=== PATIENT | female | born 1975 | race Caucasian/White ===

== ENCOUNTER 2018-12-02 10:45 | Emergency (ER) | payer BC, SELFPAY ==
[2018-12-02 10:46] VITALS: BP 167/108; PULSE 94; RESP 17; TEMP 36.6; O2SAT 978; BMI 46.5
--- NOTE | 2018-12-02 10:57 | CT_ITS ---
STUDY: CT ABDOMEN AND PELVIS WITH CONTRAST REASON FOR EXAM: Female, 43 years old. Right lower quadrant pain. Possible appendicitis. RADIATION DOSAGE (If Supplied By Facility): CTDIvol = ( 31.35 ) mGy, DLP = ( 1821.05 ) mGycm TECHNIQUE: Transaxial images were obtained from the dome of the diaphragm to the symphysis pubis without oral contrast. 100Ml IV Isovue 300 was administered. Sagittal and coronal images were reconstructed. Individualized dose optimization techniques were used for this CT. COMPARISON: None. FINDINGS: The visualized lung bases are unremarkable. The visualized portions of the heart are within normal limits. Normal liver. Normal gallbladder and extrahepatic biliary system. Normal spleen. Normal pancreas. Normal bilateral adrenal glands. Normal right kidney. Normal left kidney. There is a small hiatal hernia. Normal small intestine. There are scattered colonic diverticula consistent with diverticulosis. The appendix is visualized and appears normal. Normal abdominal aorta. Normal inferior vena cava. Normal retroperitoneum. Normal urinary bladder. The right ovary measures 3.9 cm x 3.7 cm. An ovarian cyst or small follicles are suspected within it. There is an umbilical hernia containing fat. The neck of the hernia measures 2.7 cm. Normal osseous structures. CT/Abdomen/Pelvis W IV Cont ONLY IMPRESSION: Umbilical hernia. Scattered sigmoid diverticulosis. Follicles or small cysts in the right ovary. Electronically Signed: Chan Garcia, at 12:48 EDT , Service support ,
[2018-12-02 11:06] LABS: Bacteria 0 SEEN /hpf (None Seen); Mucous, Urine 0 SEEN /hpf (<or=2+); Squamous Epithelial Cells - UA 0 SEEN /hpf (5-10); White Blood Cells 0 SEEN /hpf (0-5)
[2018-12-02 11:15] LABS: Color, Urine Straw (Yellow); Glucose, Dipstick Normal (Normal); Ketone-Dipstick Negative (Negative); Leukocyte Esterase-Dipstick Negative /ul (Negative); Nitrite-Dipstick Negative (Negative); Occult Blood-Urine 25 /ul (Negative); Protein-Dipstick Negative (Negative); Urine Bilirubin Dipstick Negative (Negative); Urine Clarity Clear (Clear); Urine Urobilinogen Normal (Normal)
[2018-12-02 11:25] LABS: Red Blood Cells-Urine 0-5 SEEN /hpf (0-5)
[2018-12-02 11:29] LABS: Absolute Lymphocyte Count 1.28 X10^3/ul (0.83-4.51); Absolute Neutrophil Count 3.5 X10^3/uL (2.0-7.7); Basophil# 0.02 X10^3/uL; Basophil% 0.4 % (0-1); Eosinophil# 0.09 X10^3/uL; Eosinophils% 1.7 % (0-5); Hematocrit 33.9 % (37-47); Hemoglobin 10.6 g/dl (12.0-15.0); Lymphocyte # 1.28 X10^3/ul (4.0); Lymphocyte % 24.2 % (19-41); Mean Corp Hgb Conc 31.3 g/gl (32-36); Mean Corpuscular Volume 76.9 fL (81-99); Mean Platelet Vol. 9.4 fl (6.2-12.0); Monocyte% 7.6 % (0-10); Neutrophil # 3.49 X10^3/uL (2.7-7.7); Neutrophil % 66.1 % (47-70); Platelet Count 338 K/mm3 (150-450); RBC Distribution Width CV 14.9 % (11.6-14.6); Red Blood Count 4.41 M/mm3 (4.2-5.4); White Blood Count 5.3 K/mm3 (4.4-11.0)
[2018-12-02 11:32] LABS: POSITIVE COUNT NO; POSITIVE DIFFERENTIAL NO; POSITIVE MORPHOLOGY NO
[2018-12-02 11:34] LABS: Anion Gap 2 (5-15); BUN 10 mg/dL (7-18); BUN/Creat Ratio 14.1 RATIO (10-20); Calcium,Total 8.6 mg/dL (8.5-10.1); Chloride 106 mmol/L (98-107); Creatinine, Serum 0.71 mg/dL (0.55-1.02); EST Glomerular Filtration Rate 95 mL/min (>60); Est Glom Filt Rate - Afr Amer 114 mL/min (>60); Estimated Creatinine Clearance 94.66 ml/min; Glucose 79 mg/dL (74-106); Potassium 4.2 mmol/L (3.5-5.1); Sodium Level 139 mmol/L (136-145)
[2018-12-02 12:36] VITALS: PULSE 84; RESP 19; O2SAT 98
--- NOTE | 2018-12-02 13:53 | ED.VIS.GEN ---
History of Present Illness Chief Complaint: Abd Pain Informant: Patient Onset: Today Context: Sudden Onset - At 0400 Timing: Continuous Quality: Discomfort Location: right lower quadrant right inguinal region Current Severity: Mild Maximum Severity: Moderate Worsened by: Movement Relieved by: Nothing Associated Symptoms: Nausea Narrative: Patient is a 43-year-old sexually active woman who presents with right lower quadrant abdominal pain. She states her had a vasectomy. She denies symptoms of . She reports right lower quadrant abdominal pain. She denies flank or back pain. She denies dysuria, frequency, urgency or hematuria. She denies history of renal ureterolithiasis. She reports nausea and decrease in appetite. She denies loss of appetite. She has no known history of hernia to her knowledge. Last menses was normal. Last menses was approximately 3 weeks ago. She does have history of ovarian cyst. She denies diarrhea, mucus in her stool or blood in her stool. There is no family history of inflammatory bowel disorder. Prior similar symptoms: No Recent Illness/Hospitalization: No - Past Medical History (1) No significant past medical history Status: Acute Past Medical History - Allergies and Home Meds Allergies/Adverse Reactions: Allergies No Known Allergies Allergy (Verified 12/02/18 10:49) Primary Care Physician: Lloyd Gordon MD [Primary Care Provider] - Prior records reviewed: Yes Surgical History: no surgical history Lives: Spouse/ Significant Other, With Family Smoking Status: Former smoker Drugs: None Review of Systems General: Denies: Chills, Fever, Malaise, Subjective, Sweats, Weight loss Eyes: Denies: Visual changes - bilaterally, Blurred Vision - bilaterally ENT: Denies: Rhinorrhea, Sore throat Cardiovascular: Denies: Chest pain Respiratory: Denies: Dyspnea, Cough, Sputum, Dyspnea on exertion Gastrointestinal: Reports: Abdominal pain, Nausea. Denies: Vomiting, Diarrhea, Constipation, Melena, Hematochezia, -, - Genitourinary: Denies: Dysuria, Hematuria, Frequency Musculoskeletal: Denies: Myalgias, Arthralgias, Neck pain, Back pain, Extremity Pain Skin: Denies: Rash, Wounds Neurological: Denies: Headache, Weakness, Numbness Hematologic: Denies: Easy bruising, Easy bleeding Allergy: Denies: Uticaria, Swelling of the mouth Physical Exam Vital Signs/Narrative: Vital Signs Temp Pulse Resp BP Pulse Ox 12/02/18 12:36 84 19 H 98 12/02/18 10:46 97.8 F 94 17 167/108 H 978 Inital Vital Signs reviewed: Yes General: Well nourished, Well developed, Obese, No Acute Distress Head: Normocephalic, Atraumatic Eyes: Perrl, EOMI. Negative for: Pale conjunctiva, Scleral icterus ENT: Moist mucous membranes, No rhinorrhea, TM's clear Neck: Supple, Nontender, No lymphadenopathy, No JVD Cardiovascular: Regular rate, Regular rhythm, No murmurs, Normal S1, Normal S2 Abdomen: Soft, Nondistended, Normal bowel sounds, No masses, Tender, Umbilical hernia, Hernia reducible. Negative for: Nontender, Ventral hernia, Inguinal hernia Rectal: Deferred Back: Nontender, Normal Inspection Extremities: Nontender, No edema Skin: Normal color, No rash Neurological: Alert, Oriented x3, Cranial nerves II-XII grossly intact, Normal Strength, Normal Sensation Psychological: Normal affect, Normal Mood Diagnostic/Tx/Re-eval Impressions Abdomen/Pelvis CT 12/02/18 10:57 IMPRESSION: Umbilical hernia. Scattered sigmoid diverticulosis. Follicles or small cysts in the right ovary. Electronically Signed: Chan Radha, at 12:48 EDT , Service support , 12/02/18 10:57 Abdomen/Pelvis W IV Cont ONLY [CT] Stat Laboratory Results 12/02/18 12/02/18 12/02/18 11:00 11:10 11:10 WBC 5.3 RBC 4.41 Hgb 10.6 L Hct 33.9 L MCV 76.9 L MCH 24.0 L MCHC 31.3 L RDW 14.9 H RDW Differential 42.0 Plt Count 338 MPV 9.4 Immature Gran % (Auto) 0.000 Neut % (Auto) 66.1 Lymph % (Auto) 24.2 [place] % (Auto) 7.6 Eos % (Auto) 1.7 Baso % (Auto) 0.4 Absolute Neuts (auto) 3.5 Absolute Lymphs (auto) 1.28 Total Counted Not Reportable Sodium 139 Potassium 4.2 Chloride 106 Carbon Dioxide 31.0 Anion Gap 2 L BUN 10 Creatinine 0.71 Estim Creat Clear Calc 94.66 Est GFR (MDRD) Af Amer 114 Est GFR (MDRD) Non-Af 95 BUN/Creatinine Ratio 14.1 Glucose 79 Calcium 8.6 Urine Color Straw Urine Clarity Clear Urine pH 8.0 Ur Specific [place] 1.010 Urine Protein Negative Urine Glucose (UA) Normal Urine Ketones Negative Urine Occult Blood 25 H Urine Nitrite Negative Urine Bilirubin Negative Urine Urobilinogen Normal Ur Leukocyte Esterase Negative Urine RBC 0-5 SEEN Urine WBC 0 SEEN Ur Squamous Epith Cells 0 SEEN Urine Bacteria 0 SEEN Urine Mucus 0 SEEN - Medical Decision Making With abrupt onset of right lower quadrant pain differential would include ovarian cyst, ureterolithiasis, mesenteric adenitis doubt appendicitis. With no history of diarrhea, blood or mucus in stool doubt inflammatory bowel disorder. Patient does have a reducible umbilical hernia. Unable to determine if she has an inguinal hernia secondary to body habitus. There is no CVA tenderness. There is significant tenderness in the right lower quadrant. CBC, UA and electrode panel unremarkable. CT of the abdomen reveals ovarian cysts on the right possible ruptured ovarian cyst and evidence of umbilical hernia. There is no evidence of inguinal or ventral hernia. Patient was informed of results and treatment is NSAIDs since she has no contraindication. ED Disposition - Plan for ED Patient: Disposition: Home or Assisted Living Diagnosis: Ovarian cyst rupture, Umbilical hernia Instructions: ED Cyst Ovarian, What Is a Hernia? Referrals: Lloyd Gordon MD [Primary Care Provider] - As Needed Additional Instructions: The treatment for ovarian cyst is anti-inflammatory. You may take either 4 ibuprofen every 8 hours for the next 3 days or 2 Aleve every 12 hours for the next 3 days.
== END 2018-12-02 14:06 | disposition home or self-care (01) ==
PROVIDERS: Emergency Provider Emergency Medicine; Family Provider Internal Medicine; PCP Internal Medicine
DX: N83.201 Unspecified ovarian cyst, right side (principal); K42.9 Umbilical hernia without obstruction or gangrene; K57.30 Diverticulosis of large intestine without perforation or abscess without bleeding; Z87.891 Personal history of nicotine dependence
CPT/HCPCS: 74177; 80048; 81001; 85025; 99284; Q9967; A4216

== ENCOUNTER 2019-05-23 09:49 | Emergency (ER) | payer BC, SELFPAY ==
[2019-05-23 09:50] VITALS: BP 164/111; PULSE 76; RESP 18; TEMP 36.6; O2SAT 98; BMI 46.0
[2019-05-23 09:52] VITALS: BP 164/111; PULSE 83; RESP 18; TEMP 36.6; O2SAT 99; BMI 46.0
--- NOTE | 2019-05-23 10:09 | CT_ITS ---
STUDY: CT BRAIN WITHOUT CONTRAST REASON FOR EXAM: Female, 44 years old. One week history of dizziness and weakness. RADIATION DOSAGE (If Supplied By Facility): CTDIvol = ( 44.99 ) mGy, DLP = ( 779.24 ) mGycm TECHNIQUE: Transaxial CT imaging of the brain was performed without administration of intravenous contrast material. Individualized dose optimization techniques were used for this CT. COMPARISON: No relevant priors. FINDINGS: Normal soft tissue structures. Normal calvarium. Normal size ventricles and extra-axial spaces for the patient's age. Normal white matter tracts of the cerebral hemispheres. Normal basal ganglia and thalami. Normal brainstem. Normal cerebellum. There is no intracranial hemorrhage. There are no findings of an acute ischemic infarction. Normal visualized paranasal sinuses. CT/Brain/Head without Contrast IMPRESSION: Normal unenhanced CT scan of the brain. Electronically Signed: Chan Garcia, at 10:57 EST , Service support ,
--- NOTE | 2019-05-23 10:11 | EKG12_ITS ---
Test Reason : WEAKNESS Blood Pressure : / mmHG Vent. Rate : 064 BPM Atrial Rate : 064 BPM P-R Int : 180 ms QRS Dur : 088 ms QT Int : 398 ms P-R-T Axes : 041 002 012 degrees QTc Int : 410 ms Normal sinus rhythm Normal ECG Confirmed by NEHAL BROWN, LULI ([id number]), electronic news gathering editor CESAR CONNORS ([id number]) on 05/30/2019 1:59:32 PM Referred By: JULIET Confirmed By:LULI CALVERT MD
--- NOTE | 2019-05-23 10:13 | ED.VIS.GEN ---
History of Present Illness Chief Complaint: Weakness Informant: Patient Onset: Yesterday Current Severity: Moderate Maximum Severity: Moderate Narrative: Patient presents with generalized weakness and lightheadedness. She did mention the word dizzy however she tells me that when she lays down in bed she is mostly asymptomatic but she sits up and stands up she feels in a cloud. She was at work and she felt worse. She denies any vision changes, speech difficulties, weakness or paresthesias or confusion. No recent trauma. She denies any chest pain or shortness of breath she denies abdominal pain she denies dysuria, she is about 7 days late for her menstrual cycle but she took a home test which was negative. She does complain of slight polydipsia. Past Medical History - Allergies and Home Meds Allergies/Adverse Reactions: Allergies No Known Allergies Allergy (Verified 05/23/19 09:53) Primary Care Physician: Lloyd Gordon MD [Primary Care Provider] - Past Medical History: None Surgical History: no surgical history Smoking Status: Former smoker Review of Systems All systems negative except as indicated General: Reports: - - Lightheaded as in HPI. Denies: Fever, Sweats, Weight loss Eyes: Denies: Visual changes - bilaterally Cardiovascular: Denies: Chest pain Respiratory: Denies: Dyspnea, Cough Gastrointestinal: Denies: Abdominal pain, Nausea, Vomiting Musculoskeletal: Denies: Myalgias, Neck pain, Back pain Skin: Denies: Rash Neurological: Reports: Weakness, - - She has noted intermittent headaches that have been happening for the past few weeks. These are mostly in the morning. Endocrine: Reports: Polydipsia. Denies: Polyuria Hematologic: Denies: Easy bruising Allergy: Denies: Swelling of the mouth, Swelling of the tongue Physical Exam Vital Signs/Narrative: Vital Signs Temp Pulse Resp BP Pulse Ox 05/23/19 09:52 97.8 F 83 18 164/111 H 99 05/23/19 09:50 97.8 F 76 18 164/111 H 98 General: Well nourished, Well developed, Obese ENT: - - Slightly dry mucous membranes Neck: Supple, Nontender Cardiovascular: Regular rate, Regular rhythm Respiratory: No distress, CTA bilaterally Abdomen: Soft, Nontender, Nondistended Back: Nontender, Normal Inspection Extremities: Nontender, No edema Skin: Normal color Neurological: Alert, Oriented x3, Cranial nerves II-XII grossly intact - Normal Romberg, Normal Strength, Normal Sensation, Normal Gait Diagnostic/Tx/Re-eval - Rhythm Strip Rhythm Strip: Sinus Rhythm Rate: 64 Ectopy: None - EKG Initial EKG Interpretation: Sinus Rhythm, - - Normal sinus rhythm at 64. Normal AR and QTc intervals. No ischemic changes Interpreted by emergency doctor - Medical Decision Making She has an unremarkable emergency department work-up, she received IV fluids and she improved. She likely had slight dehydration all her symptoms are very positional, she is virtually asymptomatic laying down. She has no vertigo or disequilibrium. I will discharge her in stable condition. ED Disposition - Plan for ED Patient: Disposition: Home or Assisted Living Diagnosis: Dehydration Instructions: Dehydration Referrals: Lloyd Gordon MD [Primary Care Provider] - 3-5 Days
[2019-05-23 10:26] LABS: Mucous, Urine 0 SEEN /hpf (<or=2+); Red Blood Cells-Urine 0 SEEN /hpf (0-5); White Blood Cells 0 SEEN /hpf (0-5)
[2019-05-23 10:28] LABS: Color, Urine Yellow (Yellow); Glucose, Dipstick Normal (Normal); Ketone-Dipstick Negative (Negative); Leukocyte Esterase-Dipstick Negative /ul (Negative); Nitrite-Dipstick Negative (Negative); Occult Blood-Urine 10 /ul (Negative); Protein-Dipstick Negative (Negative); Urine Bilirubin Dipstick Negative (Negative); Urine Clarity Sl. Cloudy (Clear); Urine Urobilinogen Normal (Normal)
[2019-05-23 10:30] LABS: Internal QC Validated? YES +Cl - CLEAR BKGD; Pregnancy, Urine Negative Negative
[2019-05-23] MEDS: 0.9% Normal Saline 1,000 ML 1000 ML IV (10:30)
[2019-05-23 10:33] LABS: Bacteria RARE /hpf (None Seen); Squamous Epithelial Cells - UA 0-5 SEEN /hpf (5-10)
[2019-05-23 10:36] LABS: Absolute Lymphocyte Count 1.38 X10^3/uL (0.83-4.51); Absolute Neutrophil Count 4.1 X10^3/uL (2.0-7.7); Basophil# 0.04 X10^3/uL; Basophil% 0.6 % (0-1); Eosinophil# 0.14 X10^3/uL; Eosinophils% 2.3 % (0-5); Hematocrit 35.4 % (37-47); Hemoglobin 11.1 g/dL (12.0-15.0); Lymphocyte # 1.38 X10^3/ul (4.0); Lymphocyte % 22.2 % (19-41); Mean Corp Hgb Conc 31.4 g/dL (32-36); Mean Corpuscular Hgb 25.5 pg (27.0-32.0); Mean Corpuscular Volume 81.4 fL (81-99); Mean Platelet Vol. 9.8 fl (6.2-12.0); Monocyte# 0.54 X10^3/uL; Monocyte% 8.7 % (0-10); NRBC Flagged by Analyzer 0 % (0-5); Neutrophil % 65.9 % (47-70); Platelet Count 298 K/mm3 (150-450); RBC Distribution Width CV 14.9 % (11.6-14.6); RBC Distribution Width SD 43.8 fl (35.1-43.9); Red Blood Count 4.35 M/mm3 (4.2-5.4); White Blood Count 6.2 K/mm3 (4.4-11.0)
[2019-05-23 10:50] LABS: ALB/GLOB Ratio 0.9 RATIO (0.9-2.4); AST(SGOT) 11 U/L (15-37); Alanine Aminotransfer ALT/SGPT 14 U/L (13-56); Albumin, Serum 3.4 g/dL (3.2-5.0); Alkaline Phosphatase 65 U/L (45-117); Anion Gap 4 (5-15); BUN 11 mg/dL (7-18); BUN/Creat Ratio 16.2 RATIO (10-20); Calcium,Total 8.4 mg/dL (8.5-10.1); Chloride 105 mmol/L (98-107); Creatinine, Serum 0.68 mg/dL (0.55-1.02); EST Glomerular Filtration Rate 99 mL/min (>60); Est Glom Filt Rate - Afr Amer 120 mL/min (>60); Globulin 3.6 g/dL (2.2-4.2); Glucose 82 mg/dL (74-106); Lipase 155 U/L (73-393); Potassium 3.9 mmol/L (3.5-5.1); Sodium Level 139 mmol/L (136-145)
--- NOTE | 2019-05-23 10:50 | RAD_ITS ---
STUDY: X-RAY CHEST REASON FOR EXAM: Female, 44 years old. Dizziness. TECHNIQUE: Single AP portable view of the chest. COMPARISON: None. FINDINGS: EKG electrodes are seen. The lungs are clear and expanded. There is no demonstrated pleural abnormality. Normal size heart. Normal mediastinum and ravinder. Normal visualized pulmonary arteries. Normal visualized aortic arch and descending thoracic aorta. Normal visualized thoracic spine. Normal visualized ribs, clavicles, and shoulders. There is no demonstrated abnormality of the visualized soft tissue structures of the upper abdomen. RAD/Chest 1 View (Portable) IMPRESSION: Normal x-ray examination of the chest. Electronically Signed: Chan aGrcia, at 11:13 EST , Service support ,
[2019-05-23 12:40] VITALS: BP 130/84; PULSE 65; RESP 18
== END 2019-05-23 12:41 | disposition home or self-care (01) ==
PROVIDERS: Emergency Provider Emergency Medicine; Family Provider Internal Medicine; PCP Internal Medicine
DX: E86.0 Dehydration (principal); Z87.891 Personal history of nicotine dependence
CPT/HCPCS: 70450; 71045; 80053; 81001; 81025; 83690; 85025; 93005; 96360; 96361; 99284; J7030; A4216

== ENCOUNTER 2020-01-12 05:29 | Day surgery (SDC) | payer BC, SELFPAY ==
[2020-01-02 08:18] VITALS: BMI 46.0
[2020-01-05 15:32] LABS: Hematocrit 36.8 % (37-47); Hemoglobin 11.1 g/dL (12.0-15.0); Mean Corp Hgb Conc 30.2 g/dL (32-36); Mean Corpuscular Volume 82.9 fL (81-99); Mean Platelet Vol. 9.6 fl (6.2-12.0); Platelet Count 353 K/mm3 (150-450); RBC Distribution Width CV 15.2 % (11.6-14.6); RBC Distribution Width SD 45.7 fl (35.1-43.9); Red Blood Count 4.44 M/mm3 (4.2-5.4)
[2020-01-05 15:44] LABS: International Normalized Ratio 1.1; Prothrombin Time (Protime)PT. 13.7 SECONDS (11.7-14.9)
[2020-01-05 15:52] LABS: Internal QC Validated? YES +Cl - CLEAR BKGD; Pregnancy, Serum, hCG Quali. NEGATIVE Negative
[2020-01-05 15:58] LABS: Creatinine, Serum 0.74 mg/dL (0.55-1.02); EST Glomerular Filtration Rate 90 mL/min (>60); Est Glom Filt Rate - Afr Amer 109 mL/min (>60)
[2020-01-12] VITALS (14 sets, daily range): BP systolic 113–157; BP diastolic 73–101; PULSE 62–98; RESP 16–18; TEMP 36.2–37.1; O2SAT 94–100; BMI 48.8
[2020-01-12] MEDS: Lactated Ringers 1,000 ML 100 ML IV ×2 (06:12)
--- NOTE | 2020-01-12 06:19 | PCM.HP.BLA ---
History and Physical Date of Admission: 01/12/20 Surgical History and Physical Holly Piper, a 44 year old female 1 0 0 0 1, presents for RAVH/BSO/APPY on January 12, 2020 at 7:30. -- Chronic RLQ Pain; Menorrhagia; Ovarian Cysts; Uterine Fibroids, Blood Loss Anemia -- 44 y.,o. G 1 P 1 previous smoker(quit many years ago) with regular menses and LMP of 11-20-19 lasting her average of 7 days. Reports about a year ago she started with heavy bleeding and has fibroids, history of ovarian cysts(last US at [facility] in ) and chronic pelvic pain. Spouse has had Vasectomy for control. Pt has fibroids, ovarian cysts, heavy bleeding, and pelvic pain. Holly claims it started gradually It occurs with menses. It is located in the vagina. Holly characterizes the quality annoying and no relief in sight. Severity is severe and worsening; Associated signs and symptoms are dysmenorrhea, blood loss anemia (Hgb down to 9's). Additional comments are: U/S at [facility] showed uterine fibroids and a 7.8 cm right ovary; overall size of uterus 7.9 x 6.4 x 5.4 cm.; Additional comments are: this u/s done on Aug 07. MEDICATIONS HISTORY: Patient is also takin. famotidine 20 mg tablet, One pill by mouth once a day at ALLERGIES: No Known Allergies Infections - Chicken pox Illnesses - Reflux Accidents - None Hospitalizations - see surgery Review of Systems: GENERAL - Denies fever, or chills SKIN - Denies skin changes EYES - Denies visual changes EARS - Denies difficulty hearing NOSE - Denies nasal congestion or bleeding MOUTH - Denies sore throat or difficulty swallowing NECK - Denies pain or swelling RESPIRATORY - Denies shortness of breath or wheezing CARDIOVASCULAR - Denies palpitations or chest pain GASTROINTESTINAL - Denies nausea, vomiting, diarrhea, constipation GENITOURINARY - Denies dysuria, frequency of urination, incontinence of urine MUSCULOSKELETAL - Denies joint or muscle pain NEUROLOGICAL - Denies localized numbness or weakness PSYCHIATRIC - Denies depression or anxiety ENDOCRINE - Denies heat or cold intolerance, weight loss or gain HEMATO-IMMUNOLOGIC - Denies excessive bleeding with cuts SOCIAL HISTORY: Alcohol Use - socially Smoking - used to smoke but quit Diet - LACTOSE FREE Lifestyle - moderate stress lifestyle and Exercise - minimal Seat Belt Use - always Employer - [employer]) Illicit Drug Use - None Sexual Activity - Spouse-Sig Other Name - Andrey Spouse-Sig Other 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 03/08/2001 2. T and A, 1987 PHYSICAL EXAM BP- 120/100 Sitting, Right arm, large cuff Temp- 98.1 Taken Orally Weight- 304.74202 lbs Height- 66.00 inch BMI:49.23 CONSTITUTIONAL - NAD, well nourished, and well developed and obese SKIN - No rash, lesions, or ulcers HEENT - Normocephalic, PERRLA, EOMI NECK - No nodes, no nuchal rigidity and thyroid normal size and texture LYMPH NODES - Palpation of lymph nodes in neck and groins within normal limits LUNGS - CTA x2 without wheezes, crackles or rales CARDIAC - Regular rate and rhythm without rubs, murmurs, or gallops ABDOMEN - Without hepatosplenomegaly, distention, masses, rebound, or guarding; normal bowel sounds; no hernias EXTREMITIES - No edema or calf tenderness NEUROLOGICAL - Cranial nerves II-XII grossly intact PSYCHIATRIC - A and O to time, place, person, mood and affect External Genital Vagina - non-tender without lesions Urethra/Urethral Meatus - non-tender Bladder - non-tender Vagina - vaginal melgar are pink and moist without loss of rugae and no evidence of atropy Cervix - without cervical motion tenderness and has normal size and features without evident lesions Uterus - 5-6 cm in size, mobile and nontender and exam compromised by habitus Adnexa - clear without masses or tenderness, increased tenderness right adnexa and exam limited by habitus ASSESSMENT/PLAN: 1. Anemia In Other Chronic Diseases Classified Elsewhere, Premenopause Menorrhagia and Uterine Leiomyoma Unspec Uncertain etiology but denies any intermenstrual bleeding. Discussed medical options including OCPs, IUD which pt refuses. Also discussed minor surgical options including D and C with/without ablation and pt declines in favor of hysterecomy due to longsstanding problems of fibroids and less likely that ablation and D and C will help with her bleeding problems and anemia. 2. Ovarian Cyst Ot/unspec and Right Lower Quadrant Pain Uncertain etiology but cyclic nature and cysts on ovaries makes endometriosis likely. Again discussed options for treatment including GnRH agonist, Dx L/S, or proceeding with Hyst with BSO/appy and patient desires the latter. Given longstanding nature and severity and cyclic nature of the pain we will proceed. Plan RAVH/BSO/APPY. Discussed RBAs including possibility of not helping with the pain and needing to be on HRT for an indefinite period of time and all questions answered. Procedure Criteria Procedure Type: Elective COVID Risk Discussion: The surgeon/proceduralist and patient have discussed in detail the risk of exposure to and/or potential harm posed by the COVID-19 virus with having a surgery/procedure at this time versus the risk of delaying the surgery/procedure. It is not possible to know either the risk of delaying the surgery or procedure or chance of getting an infection with perfect accuracy, but a joint decision was made between the patient and the surgeon/proceduralist to proceed at this time with the scheduled surgery/procedure as indicated on the consent form.
--- NOTE | 2020-01-12 07:29 | PCM.OPRPT ---
Report of Operation Date of Procedure: 01/12/20 Pre-Operative Diagnosis: Chronic RLQ Pain; Menorrhagia; Ovarian Cysts; Uterine Fibroids, Blood Loss Anemia Post-Operative Diagnosis: Chronic RLQ Pain; Menorrhagia; Ovarian Cysts; Uterine Fibroids, Blood Loss Anemia Surgery/Procedure Performed:: Robotic Assisted Vaginal Hysterectomy, Bilateral Salpingo-Oophorectomy, Appendectomy, Lysis of Adhesions Description of Surgical Findings:: 10 cm uterus with normal-appearing fallopian tubes and ovaries. Dense adhesions of the omentum to the anterior abdominal wall into the umbilicus. Normal-appearing left fallopian tube and ovary. Right ovary with approximately 4 to 5 cm endometrioma with dense adhesions of the ovary and tube to the right pelvic sidewall. Appendix appeared essentially normal. cruise director: Chemo Stephens Type of Anesthesia:: General - Endotracheal Anesthesiologist: Jesse Mayfield Specimen's removed: Uterus, bilateral fallopian tubes and ovaries, appendix Drains: Chou to straight drain Estimated Blood Loss (mL): 100 cc Fluids Replaced: Crystalloid Description of Procedure: Surgeon: Shin Groves MD, FACOG Co-surgeon: Grabiel Nuno MD (appendectomy--separate report) Indication: This is a 44 year old patient who has been having problems with pelvic pain, endometriosis, menorrhagia, and intermittent severe blood loss. Conservative measures have not been helpful. The patient has been counseled regarding the risks, benefits and alternatives of this procedure including the possibility of bleeding, infection, and injury to surrounding structures such as bowel bladder and all questions were answered. She understands that if BSO is needed that she will need to be on HRT for an indefinite period of time. Procedure: Pt taken to the operating room where, after induction of general anesthesia, the patient was prepped and draped in the usual sterile fashion and placed on a non-slip Huggy-u-vac device. Trendelenburg test was satisfactory. Bladder was drained of urine with a Chou catheter which was left in place. Anterior cervix grasped and cervix was dilated to about 3-4 mm. Uterus sounded to 8 cms. 0-Vicryl suture was placed at the 3:00 and 9:00 position of the cervix. A small Advincula Steam Fitter Supervisor Maintenance Uterine Manipulator was then placed in the uterus and attention was turned to the laparoscopic portion of the procedure. Ropivocaine 0.5% was injected approximately 2-3 cm superior to the umbilicus and an 8 and then 12 mm mm robotic camera port was introduced directly with intraperitoneal placement confirmed with CO2 insufflation. 8 mm robotic side ports were introduced under direct visualization approximately 11 cm lateral and 2 cm inferior to the umbilical port. A 5 mm left upper quadrant port was introduced and airseal insufflation with CO2 was started. The above findings were noted. Robot was docked without difficulty and attention turned to the robotic portion of the procedure. Approximately 30 cc of Ropivicaine was used. Bilateral infundibulopelvic ligaments/mesosalpinx were ligated with 35 wu bipolar coagulation to the level of the round ligament. Adhesions on the right were taken down with cautery and sharp dissection. The posterior aspect of the cervix was identified and then opened for about 1 cm using 25 watt monopolar cautery identifying the uterine manipulating device which had been placed vaginally. Bladder flap was opened and divided to the level of the round ligaments using monopolar cautery. Progressive bites were then ligated on each side of the cervix with 35 wu bipolar cautery to the uterine arteries. The anterior vaginal mucosa was entered and cervix circumscribed with monopolar cautery. Uterus and attached tubes and ovaries were removed through the vagina. Vaginal cuff was closed first with 0-Vicryl Michael stitches placed at each angle followed by closure of the mid-cuff with 0-Monocryl V-lock suture in two layers. Pelvis was copiously irrigated with saline and the right ureter was noted to peristalse. Robot was undocked and trocars were removed with as much gas as possible. Incisions were closed with 4-0 Monocryl subcuticular sutures and incisions covered with steri-strips. The patient tolerated the procedure well and was taken to the recovery room in satisfactory condition. Sponge, instruments and needle counts were all correct. There were no apparent complications of the surgery. Cefotan 2 gms IV was given prior to the procedure. Estimated Blood Loss: 100 cc Specimen to Pathology: Uterus and bilateral fallopian tubes and appendix Grafts/Implants Used: None - Complications None - Admit VTE Documentation VTE Present on Admission: Yes VTE Mechan Device Prophylaxis: SCD's VTE Pharm Prophylaxis ordered?: Yes
--- NOTE | 2020-01-12 07:30 | HYST_PTH ---
PATIENT: JOHANNA CAGE LOC: [facility] [place] U#:[id number] AGE/SX: 44/F ROOM: RE01/12/[address]: Dr. Shin Groves MD : 1975 BED: DIS: 01/13/2020 SPEC #: [id number] RECD: 01/12/20 07:30 STATUS: BEENA ADAMS #: [id number] SCOTT: 01/12/20 07:[address]: Shin Groves DEPT: SURGICAL PATHOLOGY RECD BY: Kyrie Tobias ENTERED: 01/15/20 08:24 SP TYPE: HYSTERECT OTHR DR: MD Dr. Lloyd Dumont MD Tissues: A - Uterus, NOS B - APPENDIX (INCIDENTAL) Procedures: Surgery Specimen Level II Surgery Specimen Level V HEADER OPERATION: Lap robotic hysterectomy, BSO PRE-OP DIAGNOSIS: Chronic RLQ pain; menorrhagia; ovarian cysts; uterine fibroids TISSUE SUBMITTED: A - Uterus, bilateral fallopian tubes and ovaries, B - Appendix MICROSCOPIC DIAGNOSIS A. Uterus, hysterectomy: Cervix - nabothian cysts and chronic inflammation. Endometrium - weakly proliferative to inactive endometrium. Myometrium - leiomyoma. Right ovary and fallopian tube - hemorrhagic corpus luteal cyst, tubo-ovarian adhesions and endometriosis. Left fallopian tube - benign paratubal cyst. Left ovary - hemorrhagic corpus luteal cysts and corpora albicantia. B. Appendix, appendectomy: No significant pathologic change. No evidence of inflammation. CAROL:kingsley 01/16/20 COMMENT Case has been reviewed in consultation with Dr. Santana who concurs with the above diagnosis. IDC:CAROL MICROSCOPIC DESCRIPTION Slides are reviewed. GROSS DESCRIPTION A - Received in fixative is one container labeled with the patient's name and designated uterus, bilateral fallopian tubes and ovaries. The specimen consists of a hysterectomy specimen consisting of uterus with cervix and attached bilateral fallopian tubes and ovaries. The uterus with cervix weighs 98 gm and measures 9.5 x 6 x 5 cm. The serosal surface is george, glistening and a small subserosal nodule is noted. The ectocervical mucosa is unremarkable. The external os is circular in contour. The endocervical canal measures 3.5 cm in length and the endocervical mucosa is george, glistening and unremarkable. The triangular endometrial cavity measures 4.5 cm in length and 3 cm in width. The endometrium is george, glistening without any mass lesion and measures 0.1 cm in thickness. Sections of the uterine wall reveal a small subserosal nodule measuring 0.5 cm in diameter. The uterine wall measures up to 2.5 cm in thickness. The right fallopian tube is adherent over the right ovary. The right fallopian tube measures 8 cm in length and 1 cm in diameter. The right ovary measures 4.5 x 4 x 3 cm. The ovary is partly disrupted. Sections reveal a collapsed hemorrhagic cyst. Almost the entire ovary is replaced by a hemorrhagic cyst. The left fallopian tube measures 6 cm in length and 0.5 cm in diameter. The fimbrial end is identified. The fimbrial end is focally adherent to the left ovary. Sections do not reveal any mass lesion. The left ovary measures 2.5 x 2 x 1 cm. Sections reveal a hemorrhagic fibrous lymph node. Also present in the container is a detached piece of hemorrhagic tissue measuring 2 x 2 x 0.5 cm. Personnel Recruiter sections are submitted in 12 cassettes as follows: 1 - anterior cervix, 2 - posterior cervix, 3 & 4 - anterior uterine wall, 5 & 6 - posterior uterine wall, 7 - subserosal nodular mass and right fallopian tube, 8-10 - right ovary including adherent right fallopian tube, 11 - left fallopian tube and detached piece of tissue, 12 - left ovary. B - Received is one container labeled with the patient's name and designated appendix. The specimen consists of a J-shaped appendix measuring 5 cm in length and 0.6 cm in diameter. The attached periappendiceal adipose tissue measures up to 3 cm in width. No obvious perforation is identified. The lumen contains a small amount of fecal material. No fecalith is identified. The entire specimen is submitted in two cassettes. Cassette 1 contains the tip of the appendix. / SJ:kingsley 01/15/20 TC:5 CPT: 77820, 96117
--- NOTE | 2020-01-12 07:32 | DCINST_ITS ---
Discharge Diet: No Restrictions Discharge Activity: Return to Normal Activity, May Not Drive - while taking narcotic pain medications., May Shower, May Take a Tub Bath May resume sexual activity in: 6-8 weeks Call your doctor if your incision/area has: Continuous Slow Oozing, Sudden Inc reased Bleeding, Increased Pain/ Swelling, Increased Redness, Foul Smelling Discharge Call your doctor if you observe: Fever of 101 or Higher, Inability to urinate, Inability to have a bowel movement, Using more than one pad per hour Allergies/Adverse Reactions: Allergies No Known Allergies Allergy (Verified 01/12/20 05:41) Medications to take at Discharge acetaminophen 325 mg capsule 500 mg PO QAM cap 01/02/20 famotidine 20 mg tablet 20 mg PO QHS 01/02/20 ibuprofen 200 mg capsule 200 mg PO QAM cap 01/02/20 Docusate Sodium [Colace] 100 mg PO BID PRN PRN #60 cap 01/12/20 Estradiol 1 mg PO DAILY #100 tab 01/12/20 Oxycodone [Oxyir] 5 mg PO Q6H PRN PRN 7 Days #20 tablet 01/12/20 The following prescriptions were given: Docusate Sodium [Colace] 100 mg PO BID PRN PRN #60 cap PRN Reason: Constipation Transmission Status: Pending to [facility] #30 Estradiol 1 mg PO DAILY #100 tab Transmission Status: Pending to [facility] #30 Oxycodone [Oxyir] 5 mg PO Q6H PRN PRN 7 Days #20 tablet PRN Reason: Pain Score 6-10/10 Transmission Status: Sent to [facility] #[facility] Primary Care Physician: Lloyd Gordon MD [Primary Care Provider] - Test Results: Test results from this visit will be discussed in further detail at your follow- up appointment, if applicable. Please Follow Up With: Shin Groves MD When: 2 to 3 weeks
[2020-01-12] MEDS: Ropivacaine 0.5% 30 ML Vial (08:30)
--- NOTE | 2020-01-12 11:57 | OP.PCM_ITS ---
Problem List (1) Right lower quadrant abdominal pain Status: Acute (2) Endometriosis Status: Acute Report of Operation Date of Procedure: 01/12/20 Pre-Operative Diagnosis: 1. Right lower quadrant abdominal pain. 2. Endome triosis Post-Operative Diagnosis: Same Surgery/Procedure Performed:: Laparoscopic appendectomy Type of Anesthesia:: General Anesthesiologist: Filipe Mayorga Specimen's removed: Appendix Estimated Blood Loss (mL): < 25 cc Description of Procedure: Dr. Groves had completed his robotically assisted total abdominal hysterectomy. I found the patient to be in the headdown position her vital signs were stable. And a quick report revealed that there was no overt amount of bleeding from Dr. Groves's procedure. Patient had 4 trochars located in the abdomen. We had the patient headdown and rotated to the left. I grabbed the appendix and came down on the mesoappendix with the Enseal device I had excellent hemostasis I was able to then transect the base the appendix with a 45 linear cutter. The base the appendix was then touch prepped with electrocautery excellent hemostasis was achieved. Specimen was placed in a bag and brought back through the umbilical port without difficulty. Irrigated the right lower quadrant good in the stasis was noted. Trochars were subsequently removed the abdomen was deflated. Closed the 10/12 trocar with 0 Vicryl. Skin incisions were then closed with subcuticular stitches of 4-0 Monocryl. Steri-Strips were applied sterile dressings were applied the patient tolerated the procedure well. The previous surgery will be dictated by Dr. Groves - Admit VTE Documentation VTE Present on Admission: No VTE Mechan Device Prophylaxis: SCD's VTE Pharm Prophylaxis ordered?: No Reason prophylaxis not ordered:: Treatment Not Indicated [id number]: [id number] Laparoscopy appendectomy
[2020-01-12] MEDS: Ketorolac 30 MG/ML Syringe IV ×3 (12:41→23:17)
[2020-01-12] MEDS: Dextrose 5%-Lactated Ringers 1,000 ML 150 ML IV ×2 (13:39→20:00)
[2020-01-12] MEDS: Estrogens,Conj. 0.625 MG Tablet PO (15:20)
[2020-01-12] MEDS: Enoxaparin 40 MG/0.4 ML Syringe SC (17:30)
[2020-01-12] MEDS: Acetaminophen 500 MG Tablet 1000 MG PO (20:02)
[2020-01-12] MEDS: Famotidine 20 MG Tablet PO (22:02)
[2020-01-13 01:53] VITALS: BP 114/73; PULSE 96; RESP 16; TEMP 36.8; O2SAT 95
[2020-01-13 05:55] VITALS: BP 124/75; PULSE 84; RESP 16; TEMP 36.7; O2SAT 94
[2020-01-13] MEDS: Enoxaparin 40 MG/0.4 ML Syringe SC (06:15)
[2020-01-13] MEDS: Ketorolac 10 MG Tablet PO (06:15)
[2020-01-13 07:16] VITALS: O2SAT 94
[2020-01-13 07:50] LABS: Hematocrit 30.7 % (37-47); Hemoglobin 9.4 g/dL (12.0-15.0); Mean Corp Hgb Conc 30.6 g/dL (32-36); Mean Corpuscular Hgb 25.4 pg (27.0-32.0); Mean Platelet Vol. 9.7 fl (6.2-12.0); Platelet Count 254 K/mm3 (150-450); RBC Distribution Width CV 15.3 % (11.6-14.6); RBC Distribution Width SD 45.8 fl (35.1-43.9); White Blood Count 7.6 K/mm3 (4.4-11.0)
[2020-01-13 08:07] LABS: Creatinine, Serum 0.74 mg/dL (0.55-1.02); EST Glomerular Filtration Rate 89 mL/min (>60); Est Glom Filt Rate - Afr Amer 108 mL/min (>60); Estimated Creatinine Clearance 89.87 ml/min
[2020-01-13 09:05] VITALS: BP 141/89; PULSE 91; RESP 18; TEMP 36.8; O2SAT 96
--- NOTE | 2020-01-13 09:10 | NURSING ---
Pt states she was up, voided but not measured and passed gas. This nurse now has a measuring hat in there and pt aware that this nurse wants to measure the next void. Dr. Groves here and visiting with pt going over discharge planning/instructions.
--- NOTE | 2020-01-13 09:19 | PN.OBGYN_ITS ---
Patient Problems: Active and Suspected Problems (Last Reviewed 01/02/20 @ 08:[address] Gonzalez Nuno MD) Right lower quadrant abdominal pain (Acute) Endometriosis (Acute) Subjective: Patient without complaints. Tolerating diet well. Positive flatus and able to void on own. Minimal vaginal bleeding. Objective: Wounds are clean, dry, intact. Good urine output. Hemoglobin and creatinine okay. - Physical Exam Vitals/I&O's: Vital Signs Temp Pulse Resp BP Pulse Ox 98.3 F 91 18 141/89 H 96 01/13/20 09:05 01/13/20 09:05 01/13/20 09:05 01/13/20 09:05 01/13/20 09:05 Oxygen Delivery Method Room Air Weight: 302 lb 7.587 oz Body Mass Index (BMI) 48.8 Intake and Output for Last 24 Hours 01/11/20 01/12/20 01/13/20 23:59 23:59 23:59 Intake Total 4332.5 / 4332.5 900 / 900 Output Total 1775 / 2075 650 / 650 Balance 2557.5 / 2257.5 250 / 250 Laboratory Results 01/13/20 07:25: WBC 7.6, RBC 3.70 L, Hgb 9.4 L, Hct 30.7 L, MCV 83.0, MCH 25.4 L , MCHC 30.6 L, RDW Std Deviation 45.8 H, RDW Coeff of Devonte 15.3 H, Plt Count 254, MPV 9.7 01/13/20 07:25: Creatinine 0.74, Estim Creat Clear Calc 89.87, Est GFR (MDRD) Af Amer 108, Est GFR (MDRD) Non-Af 89 Current Medications Acetaminophen (Tylenol) 1,000 mg PO Q8H PRN PRN PRN Reason: Pain Score 1-3/10 or Fever Last Admin: 01/12/20 20:02 Dose: 1,000 mg Documented by: Docusate Sodium (Colace) 100 mg PO BID PRN PRN PRN Reason: CONSTIPATION Enoxaparin Sodium (Lovenox) 40 mg SC 0600,1800 [facility] Last Admin: 01/13/20 06:15 Dose: 40 mg Documented by: Estrogens Conjugated (Premarin) 0.625 mg PO DAILY [facility] Last Admin: 01/12/20 15:20 Dose: 0.625 mg Documented by: Famotidine (Pepcid) 20 mg PO QHS [facility] Last Admin: 01/12/20 22:02 Dose: 20 mg Documented by: Hydromorphone HCl (Dilaudid Inj) 0.5 mg IV Q3H PRN PRN PRN Reason: PAIN SCORE 4-10/10 Ketorolac Tromethamine (Toradol) 10 mg PO Q6 [facility] Stop: 01/17/20 06:01 Last Admin: 01/13/20 06:15 Dose: 10 mg Documented by: Ondansetron HCl (Zofran) 4 mg IV Q4H PRN PRN PRN Reason: NAUSEA Oxycodone HCl (Oxyir) 5 mg PO Q4H PRN PRN PRN Reason: Pain Score 4-10/10 Simethicone (Mylicon) 80 mg PO PCHS [facility] Last Admin: 01/12/20 22:02 Dose: 80 mg Documented by: Sodium Chloride () 10 - 40 ml IV UD PRN PRN Reason: SALINE FLUSH Medical Necessity - Tobacco Use Smoking Status: Former smoker Assessment/Plan All Active Problems (Last Reviewed 01/02/20 @ 08:[address] Gonzalez Nuno MD) Right lower quadrant abdominal pain (Acute) Endometriosis (Acute) No significant past medical history (Acute) Doing well postoperative day #1 status post robotic assisted vaginal hysterectomy and bilateral salpingo-oophorectomy with appendectomy. Will discharge to home with routine instructions.
--- NOTE | 2020-01-13 10:14 | NURSING ---
This nurse going over discharge instructions. Pt would rather have vicodin instead oxyir. Oxyir has been prescribed for home. Per resaw carriage operator, Dr. Lagunas is convict guard for Dr. Groves. This nurse left message for Dr. Keara Hurtado to call this nurse back. Pt is ready to be discharged.
== END 2020-01-13 10:27 | disposition home or self-care (01) ==
LOC: SDC 05:30 → AC 05:31 → MS3 01-15 08:45
PROVIDERS: Anesthesiology; Surgery; PCP Internal Medicine; Referring Provider Obstetrics & Gynecology; Visit Provider Obstetrics & Gynecology
PROC: 0UT94ZZ Resection of Uterus, Percutaneous Endoscopic Approach (ICD-10-PCS; CPT 58552; principal; 2020-01-12 07:10)
PROC: 0DTJ4ZZ Resection of Appendix, Percutaneous Endoscopic Approach (ICD-10-PCS; CPT 44970; 2020-01-12 07:10)
DX: N80.1 Endometriosis of ovary (principal); K21.9 Gastro-esophageal reflux disease without esophagitis; N92.4 Excessive bleeding in the premenopausal period; N83.11 Corpus luteum cyst of right ovary; N83.292 Other ovarian cyst, left side; N88.8 Other specified noninflammatory disorders of cervix uteri; N83.8 Other noninflammatory disorders of ovary, fallopian tube and broad ligament; D25.9 Leiomyoma of uterus, unspecified; D50.0 Iron deficiency anemia secondary to blood loss (chronic); N73.6 Female pelvic peritoneal adhesions (postinfective); G89.29 Other chronic pain; E66.9 Obesity, unspecified; Z68.42 Body mass index [BMI] 45.0-49.9, adult; Z79.1 Long term (current) use of non-steroidal anti-inflammatories (NSAID); Z79.01 Long term (current) use of anticoagulants; Z87.891 Personal history of nicotine dependence; Z11.59 Encounter for screening for other viral diseases
CPT/HCPCS: 00840; 44970; 58552; S2900; 36415; 82565; 84703; 85027; 85610; 85730; 86850; 86900; 86901; 87635; 88302; 88307; 99251; G2023; J7120; C1760; G0463; J2405; U0003

== ENCOUNTER → 2020-01-17 | Outpatient (CLI) | payer BC, SELFPAY ==
[2020-01-12 14:01] VITALS: BMI 48.8
== END | disposition home or self-care (01) ==
PROVIDERS: PCP Internal Medicine; Referring Provider Obstetrics & Gynecology; Visit Provider Obstetrics & Gynecology
DX: N39.0 Urinary tract infection, site not specified (principal)
CPT/HCPCS: 87086; 87088

== ENCOUNTER 2020-03-09 10:41 | Emergency (ER) | payer BC, SELFPAY ==
[2020-01-12 14:01] VITALS: BMI 48.8
[2020-03-09 10:42] VITALS: BP 198/107; PULSE 82; RESP 16; TEMP 36.4; O2SAT 98; BMI 49.2
--- NOTE | 2020-03-09 10:59 | CT_ITS ---
STUDY: CT ABDOMEN AND PELVIS WITHOUT CONTRAST REASON FOR EXAM: Female, 45 years old. LLQ PAIN X2 DAYS -- HYST X2 MONTHS AGO RADIATION DOSAGE (If Supplied By Facility): CTDIvol = ( 34.31 ) mGy, DLP = ( 1825.81 ) mGycm TECHNIQUE: Transaxial images were obtained from the dome of the diaphragm to the symphysis pubis without oral contrast, and without intravenous contrast. Sagittal and coronal images were reconstructed. Individualized dose optimization techniques were used for this CT. COMPARISON: None. FINDINGS: The visualized lung bases are unremarkable. The visualized portions of the heart are within normal limits. Normal liver. Normal gallbladder and extrahepatic biliary system. Normal spleen. Normal pancreas. Normal bilateral adrenal glands. Normal right kidney. Normal left kidney. There is a small hiatal hernia. Normal small intestine. Normal colon. There are surgical clips in the region of the appendix consistent with a prior appendectomy. Normal abdominal aorta. Normal inferior vena cava. Normal retroperitoneum. Normal urinary bladder. There is a small umbilical hernia containing fat. Normal osseous structures. CT/Abdomen/Pelvis without Cont IMPRESSION: No acute abnormality. Electronically Signed: Jayden Carlos MD at 11:23 EDT Tel , Service support ,
--- NOTE | 2020-03-09 11:09 | ED.DCSUM_ITS ---
History of Present Illness Chief Complaint: Female C/O Informant: Patient Onset: Yesterday Narrative: Patient presents the emergency room with a suprapubic discomfort. It began slightly yesterday and intensified throughout the night today was concerning. She states it is very localized but cannot quite tell if this is superficial or deep. She is about 8 weeks out from a laparoscopic complete hysterectomy with appendectomy. Patient denies any urinary symptoms. She states that bowel movements have been normal for her. No fevers. Past Medical History - Allergies and Home Meds Allergies/Adverse Reactions: Allergies No Known Allergies Allergy (Verified 03/09/20 10:41) Primary Care Physician: Lloyd Gordon MD [Primary Care Provider] - Surgical History: no surgical history Smoking Status: Former smoker Review of Systems General: Denies: Chills, Fever, Sweats Eyes: Denies: Visual changes - bilaterally, Diplopia ENT: Denies: Rhinorrhea, Sore throat Cardiovascular: Denies: Chest pain, Palpitations Respiratory: Denies: Dyspnea, Cough, Dyspnea on exertion Gastrointestinal: Denies: Abdominal pain, Nausea, Vomiting, Diarrhea, Melena, Hematochezia Genitourinary: Reports: - - See history of present illness. Denies: Dysuria, Hematuria, Frequency Musculoskeletal: Denies: Back pain, Extremity Pain Skin: Denies: Rash, Wounds Neurological: Denies: Headache, Weakness, Numbness Physical Exam Vital Signs/Narrative: Vital Signs Temp Pulse Resp BP Pulse Ox 03/09/20 10:42 97.5 F L 82 16 198/107 H 98 Inital Vital Signs reviewed: Yes General: Well nourished, Well developed, Obese, No Acute Distress Head: Normocephalic, Atraumatic Eyes: Perrl, EOMI ENT: Moist mucous membranes, No rhinorrhea Neck: Supple, Nontender Cardiovascular: Regular rate, Regular rhythm, No murmurs Respiratory: No distress, CTA bilaterally, Chest nontender Abdomen: Soft, Nontender, Nondistended, Normal bowel sounds : - - In the suprapubic region I do not appreciate any swelling masses erythema or tissue texture changes. Back: Nontender, Normal Inspection Extremities: Nontender, No edema Skin: Normal color, No rash Neurological: Alert, Oriented x3, Cranial nerves II-XII grossly intact, Normal Strength, Normal Sensation Psychological: Normal affect, Normal Mood Diagnostic/Tx/Re-eval Clinical Impression(s) from Imaging Studies Abdomen/Pelvis CT 03/09/20 10:59 IMPRESSION: No acute abnormality. Electronically Signed: Jayden Carlos MD at 11:23 EDT Tel , Service support , Laboratory Last Values Urine Color Yellow (Yellow) 03/09/20 11:39 Urine Clarity Clear (Clear) 03/09/20 11:39 Urine pH 6.5 (5.0 - 8.0) 03/09/20 11:39 Ur Specific Vanderbilt 1.010 (1.002-1.030) 03/09/20 11:39 Urine Protein Negative mg/dl (Negative) 03/09/20 11:39 Urine Glucose (UA) Normal mg/dl (Normal) 03/09/20 11:39 Urine Ketones Negative mg/dl (Negative) 03/09/20 11:39 Urine Occult Blood 25 /ul (Negative) H 03/09/20 11:39 Urine Nitrite Negative (Negative) 03/09/20 11:39 Urine Bilirubin Negative mg/dL (Negative) 03/09/20 11:39 Urine Urobilinogen Normal mg/dl (Normal) 03/09/20 11:39 Ur Leukocyte Esterase Negative /ul (Negative) 03/09/20 11:39 Urine RBC 0 SEEN /hpf (0-5) 03/09/20 11:39 Urine WBC 0 SEEN /hpf (0-5) 03/09/20 11:39 Ur Squamous Epith Cells 0-5 SEEN /hpf (5-10) 03/09/20 11:39 Urine Bacteria 0 SEEN /hpf (None Seen) 03/09/20 11:39 Urine Mucus 0 SEEN /hpf (<or=2+) 03/09/20 11:39 - Medical Decision Making See an obvious cause for the patient's pain. It is very localized just to the left of midline so when I look at her pictures of her CT I could see that there is probably a developing inguinal hernia on the right but this would explain her pain. I do not see any abnormal fluid collections inflammatory changes. Her urine is normal. I have asked that she continue to observe this pain and if it still persistent on Wednesday to follow-up with her surgeon Dr. Groves. ED Disposition - Plan for ED Patient: Disposition: Home or Assisted Living Diagnosis: Acute pelvic pain, female Instructions: ED Pelvic Pain [facility] Referrals: Shin Gorves MD [STAFF PHYSICIAN] - 2 Days (in 2 days if still with symptoms or return if worsening)
[2020-03-09 11:48] LABS: Bacteria 0 SEEN /hpf (None Seen); Mucous, Urine 0 SEEN /hpf (<or=2+); Red Blood Cells-Urine 0 SEEN /hpf (0-5); White Blood Cells 0 SEEN /hpf (0-5)
[2020-03-09 12:02] LABS: Color, Urine Yellow (Yellow); Glucose, Dipstick Normal (Normal); Ketone-Dipstick Negative (Negative); Leukocyte Esterase-Dipstick Negative /ul (Negative); Nitrite-Dipstick Negative (Negative); Occult Blood-Urine 25 /ul (Negative); Protein-Dipstick Negative (Negative); Urine Bilirubin Dipstick Negative (Negative); Urine Clarity Clear (Clear); Urine Urobilinogen Normal (Normal); Urine pH 6.5 (5.0 - 8.0)
[2020-03-09 12:09] LABS: Squamous Epithelial Cells - UA 0-5 SEEN /hpf (5-10)
== END 2020-03-09 12:23 | disposition home or self-care (01) ==
PROVIDERS: Emergency Provider Emergency Medicine; PCP Internal Medicine
DX: R10.2 Pelvic and perineal pain (principal); E66.9 Obesity, unspecified; Z68.42 Body mass index [BMI] 45.0-49.9, adult; Z87.891 Personal history of nicotine dependence
CPT/HCPCS: 74176; 81001; 99282

== ENCOUNTER 2020-05-23 08:30 | Outpatient (RCR) | payer BC, SELFPAY ==
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
--- NOTE | 2020-05-15 10:03 | HP.PTREVAL ---
Dr. Shin Groves MD, It has been my pleasure to treat JOHANNA IRBY over the last 5 visits for Traumatic Pubis Sympysis Rupture. Please see the progress note below for an update on the physical therapy plan of care! Subjective: Patient reports that she worked 2 days in a row so she is more painful. She reports that the discomfort level after pool therapy. Pain is a 3/10 today- she took an advil and tylenol this morning- internal swelling from the hysterectomy when she has hard days at work. Got home at 4:00 then was in bed until this morning. Has noticed some incontience at night when her bladder is full. Pain is in the back and radiates down the buttock to the knee on the right. Gaining more control when she lays down- feels that she is gaining more strength. Objective/Function: Painful today- unable to sit for re-evaluation today. No signficant changes since IE due to decreased participation in therapy over the last few weeks. Plan Plan: Land based program- focus on LE and core strength/stabilization- go slow and gentle! Goals Goal 1:: Patient will be I with HEP and progression Goal Time Frame: 4-6 Weeks Goal 2:: Patient will maintain proper posture t/o tx session to demo increased core s/s. Goal Time Frame: 4-6 Weeks Goal 3:: Patient will demo sit to supine and supine to sit with normal pace and no pain Goal Time Frame: 4-6 Weeks Anticipated Interventions Patient/Client Instruction: Educate patient on: Benefits of Fitness Program Therapeutic Exercise to Include: Strength training, Endurance training, Balance training, Coordination, Agility training, Body mechanics, Postural training, Flexibilty training, Gait and locomotor training, Neuromotor development, In an aquatic setting, Passive ROM, Active ROM, Dynamic Lumbar Stabilization, Scapular Strength/Stabilization For the Purpose of:: To improve muscle performance and motor function Please do not hesitate to contact me at [phone] by phone or if you have questions or concerns regarding this new plan of care! Sincerely, Kimmy Hamilton DPT
--- NOTE | 2020-06-27 11:32 | HP.PT.NRP ---
JOHANNA IRBY was seen in my office for initial evaluation on 04/11/20. The following Plan of Care was established for this patient: Initial Frequency: 2x /Week Initial Duration: 4 Weeks Patient/Client Instruction: Educate patient on: Benefits of Fitness Program Therapeutic Exercise to Include: Strength training, Endurance training, Balance training, Coordination, Agility training, Body mechanics, Postural training, Flexibilty training, Gait and locomotor training, Neuromotor development, In an aquatic setting, Passive ROM, Active ROM, Dynamic Lumbar Stabilization, Scapular Strength/Stabilization For the Purpose of:: To improve muscle performance and motor function This patient was last seen in our office . Pertinent comments regarding their Physical therapy will appear below: Patient continues to no show PT session- discharge and return to MD for further evaluation as needed. At this point I will be discontinuing this patient from physical therapy. I would be happy to see this patient again in the future if found appropriate by the physician. Thank you! Kimmy Hamilton DPT
== END 2020-05-23 19:00 | disposition home or self-care (01) ==
LOC: PT 08:30
PROVIDERS: PCP Internal Medicine; Referring Provider Obstetrics & Gynecology; Visit Provider Obstetrics & Gynecology
DX: S33.4XXD Traumatic rupture of symphysis pubis, subsequent encounter (principal)
CPT/HCPCS: 97110; 97113; 97162; 97164

== ENCOUNTER → 2020-11-13 12:11 | Outpatient (CLI) | payer OTHER, SELFPAY ==
--- NOTE | 2020-11-13 12:13 | MRI_ITS ---
STUDY: MRI LUMBAR SPINE WITHOUT CONTRAST REASON FOR EXAM: Female, 45 years old. DDD TECHNIQUE: Standardized fat and water weighted pulse sequences were obtained in the sagittal and axial planes. COMPARISON: None FINDINGS: Normal lumbar lordosis. There is no substantial scoliosis. Normal conus medullaris that terminates at the L1 L1-2: There is minimal disc space narrowing and endplate spondylosis. There is no significant disc herniation, central canal or foraminal stenosis. Mild facet arthropathy L2-3: There is minimal disc space narrowing and endplate spondylosis. There is no significant disc herniation, central canal or foraminal stenosis. Mild facet arthropathy L3-4: There is minimal disc space narrowing and endplate spondylosis. There is no significant disc herniation, central canal or foraminal stenosis. Mild facet arthropathy L4-5: There is mild disc space narrowing and endplates spondylosis. Moderate facet arthropathy with grade 1 anterolisthesis and disc uncovering with mild central canal stenosis. No significant foraminal stenosis. L5-S1: There is mild disc space narrowing and endplates spondylosis. Moderate facet arthropathy. Grade 1 anterolisthesis. Disc bulge with left paracentral protrusion resulting in severe Left lateral recess narrowing. Mild central canal stenosis. No significant foraminal stenosis. Normal visualized sacral ala. MRI/Spine Lumbar (Routine) IMPRESSION: L4/L5: Grade 1 anterolisthesis. L5/S1: Grade 1 anterolisthesis. Disc protrusion with severe left lateral recess narrowing. Electronically Signed: Henrietta Galicia MD at 11:04 EDT Tel , Service support ,
== END ==
PROVIDERS: PCP Family Medicine; Referring Provider Family Medicine; Visit Provider Family Medicine
DX: M51.36 Other intervertebral disc degeneration, lumbar region (principal); M51.26 Other intervertebral disc displacement, lumbar region; M43.16 Spondylolisthesis, lumbar region
CPT/HCPCS: 72148

== ENCOUNTER 2021-01-30 13:30 | Outpatient (RCR) | payer OTHER, SELFPAY ==
--- NOTE | 2020-11-28 14:59 | HP.PTEVAL_ITS ---
Patient's Visit Information JOHANNA IRBY is a 45 year old F referred to Physical Therapy by Dr. Kiet Jon MD with a diagnosis of Lumbar DDD with disc protrusion on the L. Date of Evaluation: 11/28/20 Physical Therapist: MERLINE Clifton - Visit Plan Frequency: 2-3x /Week Duration: 6 Weeks Plan: 2-3 X/ week for 6 weeks to work on centralization of symptoms, core stability, trunk ROM, functional training, gait training, postural exercises with HEP and modalities including E-stim, MH and US as needed. May also do some MT and massage gun to help loosen up spasms as needed. - Subjective Pt was here in PT last April for PT... she started with the AT and was not able to do too much in the pool with the back issue. THey tried the room PT and she could not lay on her back and it was making things worse. She had an MRI 3 weeks ago and it came back with disc bulge L5 and pressing against the nerve on the L side. He indicated that it was a bulge and not a herniation. She has a lot of pain getting out of bed and it is a good 20-30 minutes and it is an 8/10 pain.... it feels like hot water is running down the L side and numbness in her footl. IT all stops 30 min when out of bed. Next worst is driving a car or si tting greater than 15 min and her back muscles seize up. She stands for her whole day and has a desk that raises up. She sits to rest her feet for 30 min at her best. She sleeps great at night. Intense back pain when first laying down that lasts about 20 minutes and then it goes away and she sleeps soundly throughout the night. Anytime she gets out of bed she needs to use a cane. L leg pain in buttock and wrapping around to the front of her thigh. The nerve pain hot lava and numbness. Will not use the stairs unless has to and no pain doing the stairs but following the stairs there will muscle pain. This has been going on since december of last year after hysterectomy. - Pain back pain Pain Intensity (Out of 10): 3 Pain Intensity Range: 9 Comment: getting out of bed in the morning L leg pain Pain Intensity (Out of 10): 0 Pain Intensity Range: 8 - Objective Pt does not want to get onto the table as she knows that it will take 20 min to get off the table. Gait: pt walks with upper trunk shift to the R side. Trunk ROM: flexion: pt does not want do do this as she knows it will hurt, Ext 50% with L side having less extension than the R. SB to the R increased her pain at 25% and L 25% with no pain. Pt is able to walk on heels and toes with some weakness on the R ankle/LE. LE MMT: B hip flexion 3-/5, B hip abd in sitting 4-/5, B knee ext R 4+/5 and L 3+/5, B knee flexion 4-/5,. Attempted to Shift her spine to the L as she has a visable shift ( shoulders to the R) with gait manual 3 X 10 with slight increase spasm on the R L-spine paraspinals in standing. Did some deep tissue of the L-spine paraspinals on the R in sitting and that spasm went away. Had pt put her R shoulder up against the wall and had her shift her hips to the R and she started to have less pain in her spine. - Goals Goal 1:: I HEP Goal Time Frame: 4-6 Weeks Goal 2:: Be able to subjectively have 50% less back and L leg pain Goal Time Frame: 4-6 Weeks Goal 3:: Be able to get out of bed in the morning with in 5 minutes instead of 20. Goal Time Frame: 4-6 Weeks Goal 4:: Be able to increase LE strength by 1/2 muscle grade ( at time of eval: LE MMT: B hip flexion 3-/5, B hip abd in sitting 4-/5, B knee ext R 4+/5 and L 3+/5, B knee flexion 4-/5). 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 (at time of the eval: Trunk ROM: flexion: pt does not want do do this as she knows it will hurt, Ext 50% with L side having less extension than the R. SB to the R increased her pain at 25% and L 25% with no pain). Goal Time Frame: 4-6 Weeks - Rehabilitation Potential Rehabilitation Potential: Good - Anticipated Interventions Patient/Client Instruction: Educate patient on: Condition, Plan of Care For the Purpose of:: To decrease pain, To increase ROM, To improve nutrient delivery to tissue, To improve muscle performance and motor function, To improve ability to perform ADL's, To increase tolerance to activity/condition/position, To improve performance and independence with ADL's, To decrease level of supervision to perform tasks, To improve ability of physical actions for home/community/work/leisure, To improve gait and locomotor functions, To improve health of tissue, To decrease soft tissue restriction, To increase flexibility/ROM, To improve endurance, To improve balance, To improve safety with gait Therapeutic Exercise to Include: Strength training, Body mechanics, Postural training, Flexibilty training, Gait and locomotor training, In an aquatic setting, Active ROM, Dynamic Lumbar Stabilization, Jose M Exercises For the Purpose of:: To decrease pain, To increase ROM, To improve nutrient delivery to tissue, To improve muscle performance and motor function, To improve ability to perform ADL's, To increase tolerance to activity/condition/position, To improve performance and independence with ADL's, To improve ability of p hysical actions for home/community/work/leisure, To improve gait and locomotor functions, To improve health of tissue, To decrease soft tissue restriction, To increase flexibility/ROM Manual Therapy Techniques to Include: Mobilization, Soft tissue mobilization For the Purpose of:: To decrease pain, To increase ROM, To improve muscle performance and motor function, To improve ability to perform ADL's, To increase tolerance to activity/condition/position, To improve performance and independence with ADL's, To improve ability of physical actions for home/community/work/leisure, To improve health of tissue, To decrease soft tissue restriction, To increase flexibility/ROM, To improve safety with gait, To reduce risk of recurrence, To improve health and function IF ES: Yes Cryotherapy (ice pack, ice massage): Yes Thermo therapy (hot pack): Yes Ultrasound (thermal/non thermal): Yes For the Purpose of:: To decrease pain, To increase ROM, To improve nutrient delivery to tissue, To improve muscle performance and motor function Thank you for the opportunity to evaluate your patient. For Medicare and Medicare HMO plans, please review the plan of care and approve it. It will need to be FAXED BACK to us at [phone] for Medicare purposes. For Medicare only, by signing this I certify the plan of care. Please let me know if there are questions or concerns regarding this plan of care. Physician Signature: Date:
--- NOTE | 2020-12-23 13:55 | HP.PTREVAL_ITS ---
Dr. Kiet Jon MD, It has been my pleasure to treat JOHANNA IRBY over the last 7 visits for Lumbar DDD with disc protrusion on the L. Please see the progress note below for an update on the physical therapy plan of care! Subjective: Pt reports that she quit her job this morning becaue they want her there early in the morning and it takes her forever to get out of bed in the morning. Pt felt the tingling down her L leg when walking in the door because she sat in the car too long. She is not sure about the extensions in standing..... She is frustrated because she thought that she would be farther along by now. Sleeping: she sleeps on her back and does ok unless she has bad back spasms and some leg pain but able to sleep most of the night. Sitting: she can sit for 20-30 min but is in discomfort after that. 90% of her day is standing or walking. She can not sit for an hour long show or a movie. Objective/Function: Pt is not making much advancement in PT. Looked at MRI and shows severe encroachment on the L side.... Plan Plan: Call Dr Jon to discuss lack of progress and further PT visits or referral back to physician. Goals Goal 1:: I HEP Goal Time Frame: 4-6 Weeks Goal 2:: Be able to subjectively have 50% less back and L leg pain Goal Time Frame: 4-6 Weeks Goal 3:: Be able to get out of bed in the morning with in 5 minutes instead of 20. Goal Time Frame: 4-6 Weeks Goal 4:: Be able to increase LE strength by 1/2 muscle grade ( at time of eval: LE MMT: B hip flexion 3-/5, B hip abd in sitting 4-/5, B knee ext R 4+/5 and L 3+/5, B knee flexion 4-/5). 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 (at time of the eval: Trunk ROM: flexion: pt does not want do do this as she knows it will hurt, Ext 50% with L side having less extension than the R. SB to the R increased her pain at 25% and L 25% with no pain). Goal Time Frame: 4-6 Weeks Anticipated Interventions Patient/Client Instruction: Educate patient on: Condition, Plan of Care For the Purpose of:: To decrease pain, To increase ROM, To improve nutrient delivery to tissue, To improve muscle performance and motor function, To improve ability to perform ADL's, To increase tolerance to activity/condition/position, To improve performance and independence with ADL's, To decrease level of supervision to perform tasks, To improve ability of physical actions for home/community/work/leisure, To improve gait and locomotor functions, To improve health of tissue, To decrease soft tissue restriction, To increase flexibility/ROM, To improve endurance, To improve balance, To improve safety with gait Therapeutic Exercise to Include: Strength training, Body mechanics, Postural training, Flexibilty training, Gait and locomotor training, In an aquatic setting, Active ROM, Dynamic Lumbar Stabilization, Jose M Exercises For the Purpose of:: To decrease pain, To increase ROM, To improve nutrient delivery to tissue, To improve muscle performance and motor function, To improve ability to perform ADL's, To increase tolerance to activity/condition/position, To improve performance and independence with ADL's, To improve ability of physical actions for home/community/work/leisure, To improve gait and locomotor functions, To improve health of tissue, To decrease soft tissue restriction, To increase flexibility/ROM Manual Therapy Techniques to Include: Mobilization, Soft tissue mobilization For the Purpose of:: To decrease pain, To increase ROM, To improve muscle performance and motor function, To improve ability to perform ADL's, To increase tolerance to activity/condition/position, To improve performance and independence with ADL's, To improve ability of physical actions for home/community/work/leisure, To improve health of tissue, To decrease soft tissue restriction, To increase flexibility/ROM, To improve safety with gait, To reduce risk of recurrence, To improve health and function IF ES: Yes Cryotherapy (ice pack, ice massage): Yes Thermo therapy (hot pack): Yes Ultrasound (thermal/non thermal): Yes For the Purpose of:: To decrease pain, To increase ROM, To improve nutrient delivery to tissue, To improve muscle performance and motor function Please do not hesitate to contact me at [phone] by phone or if you have questions or concerns regarding this new plan of care! Sincerely, Abbie Teague, MPT
--- NOTE | 2021-01-08 16:00 | HP.PTREVAL ---
Dr. Kiet Jon MD, It has been my pleasure to treat JOHANNA IRBY over the last 8 visits for Lumbar DDD with disc protrusion on the L. Please see the progress note below for an update on the physical therapy plan of care! Subjective: Dr wanted eithr pool therapy or pain management. Pt reports that she has been working on her posture and that has helped her alot. She was able to drive here from home painfree in the car. Riding in the car was getting better. She feels that her muscle cramping is getting better and she still has nerve sensation down the back of the leg and it is manageable. Pt went to a chiropractor appt and she worked her too hard and she could hardly get out of bed and took celebrex this am. She has started some walking more even if 10-15 min. She is trying to keep water intake up. She can not lay on her stomach. She will do water therapy. She has been up 7 hours a day now instead of 6. Objective/Function: Pt standing up straighter. Still walking in slow to dept Plan Plan: AT 2 X/ week for 4 weeks for general mobility, core stability, LE strength, gentle progressive trunk ROM, postural exercises with HEP Goals Goal 1:: I HEP Goal Time Frame: 4-6 Weeks Goal 2:: Be able to subjectively have 50% less back and L leg pain Goal Time Frame: 8-12 Weeks Goal Progress: Progressing Goal 3:: Be able to get out of bed in the morning with in 5 minutes instead of 20. Goal Time Frame: 8-12 Weeks Goal 4:: Be able to increase LE strength by 1/2 muscle grade ( at time of eval: LE MMT: B hip flexion 3-/5, B hip abd in sitting 4-/5, B knee ext R 4+/5 and L 3+/5, B knee flexion 4-/5). 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 (at time of the eval: Trunk ROM: flexion: pt does not want do do this as she knows it will hurt, Ext 50% with L side having less extension than the R. SB to the R increased her pain at 25% and L 25% with no pain). Goal Time Frame: 8-12 Weeks Anticipated Interventions Patient/Client Instruction: Educate patient on: Condition, Plan of Care For the Purpose of:: To decrease pain, To increase ROM, To improve nutrient delivery to tissue, To improve muscle performance and motor function, To improve ability to perform ADL's, To increase tolerance to activity/condition/position, To improve performance and independence with ADL's, To decrease level of supervision to perform tasks, To improve ability of physical actions for home/community/work/leisure, To improve gait and locomotor functions, To improve health of tissue, To decrease soft tissue restriction, To increase flexibility/ROM, To improve endurance, To improve balance, To improve safety with gait Therapeutic Exercise to Include: Strength training, Body mechanics, Postural training, Flexibilty training, Gait and locomotor training, In an aquatic setting, Active ROM, Dynamic Lumbar Stabilization, Jose M Exercises For the Purpose of:: To decrease pain, To increase ROM, To improve nutrient delivery to tissue, To improve muscle performance and motor function, To improve ability to perform ADL's, To increase tolerance to activity/condition/position, To improve performance and independence with ADL's, To improve ability of physical actions for home/community/work/leisure, To improve gait and locomotor functions, To improve health of tissue, To decrease soft tissue restriction, To increase flexibility/ROM Manual Therapy Techniques to Include: Mobilization, Soft tissue mobilization For the Purpose of:: To decrease pain, To increase ROM, To improve muscle performance and motor function, To improve ability to perform ADL's, To increase tolerance to activity/condition/position, To improve performance and independence with ADL's, To improve ability of physical actions for home/community/work/leisure, To improve health of tissue, To decrease soft tissue restriction, To increase flexibility/ROM, To improve safety with gait, To reduce risk of recurrence, To improve health and function IF ES: Yes Cryotherapy (ice pack, ice massage): Yes Thermo therapy (hot pack): Yes Ultrasound (thermal/non thermal): Yes For the Purpose of:: To decrease pain, To increase ROM, To improve nutrient delivery to tissue, To improve muscle performance and motor function Please do not hesitate to contact me at [phone] by phone or if you have questions or concerns regarding this new plan of care! Sincerely, Abbie Teague, MPT
--- NOTE | 2021-06-25 17:00 | HP.PTDCNRP_ITS ---
JOHANNA IRBY was seen in my office for initial evaluation on 11/28/20. The following Plan of Care was established for this patient: Initial Frequency: 2-3x /Week Initial Duration: 6 Weeks Patient/Client Instruction: Educate patient on: Condition, Plan of Care For the Purpose of:: To decrease pain, To increase ROM, To improve nutrient delivery to tissue, To improve muscle performance and motor function, To improve ability to perform ADL's, To increase tolerance to activity/condition/position, To improve performance and independence with ADL's, To decrease level of supervision to perform tasks, To improve ability of physical actions for home/community/work/leisure, To improve gait and locomotor functions, To improve health of tissue, To decrease soft tissue restriction, To increase flexibility/ROM, To improve endurance, To improve balance, To improve safety with gait Therapeutic Exercise to Include: Strength training, Body mechanics, Postural training, Flexibilty training, Gait and locomotor training, In an aquatic setting, Active ROM, Dynamic Lumbar Stabilization, Jose M Exercises For the Purpose of:: To decrease pain, To increase ROM, To improve nutrient delivery to tissue, To improve muscle performance and motor function, To improve ability to perform ADL's, To increase tolerance to activity/condition/position, To improve performance and independence with ADL's, To improve ability of physical actions for home/community/work/leisure, To improve gait and locomotor functions, To improve health of tissue, To decrease soft tissue restriction, To increase flexibility/ROM Manual Therapy Techniques to Include: Mobilization, Soft tissue mobilization For the Purpose of:: To decrease pain, To increase ROM, To improve muscle performance and motor function, To improve ability to perform ADL's, To increase tolerance to activity/condition/position, To improve performance and independence with ADL's, To improve ability of physical actions for home/commun ity/work/leisure, To improve health of tissue, To decrease soft tissue restriction, To increase flexibility/ROM, To improve safety with gait, To reduce risk of recurrence, To improve health and function IF ES: Yes Cryotherapy (ice pack, ice massage): Yes Thermo therapy (hot pack): Yes Ultrasound (thermal/non thermal): Yes For the Purpose of:: To decrease pain, To increase ROM, To improve nutrient delivery to tissue, To improve muscle performance and motor function This patient was last seen in our office 01/30/21. Pertinent comments regarding their Physical therapy will appear below: Pt no-showed for her last couple of appointments and will be discharged at this time. At this point I will be discontinuing this patient from physical therapy. I would be happy to see this patient again in the future if found appropriate by the physician. Thank you! Abbie Teague, MERLINE Balance/Gait/Functional tests - Balance/Special Test Scores Oswestry Low Back Score: 21
== END 2021-01-30 19:00 | disposition home or self-care (01) ==
LOC: PT 13:30
PROVIDERS: PCP Family Medicine; Referring Provider Family Medicine; Visit Provider Family Medicine
DX: M51.36 Other intervertebral disc degeneration, lumbar region (principal)
CPT/HCPCS: 97014; 97110; 97113; 97162; 97530; G0283

== ENCOUNTER → 2022-04-02 | Outpatient (CLI) | payer OTHER, SELFPAY ==
[2022-04-02 10:01] LABS: Absolute Neutrophil Count 3.3 X10^3/uL (2.0-7.7); Basophil# 0.04 X10^3/uL; Basophil% 0.8 % (0-1); Hematocrit 35.4 % (37-47); Hemoglobin 11.7 g/dL (12.0-15.0); Mean Corp Hgb Conc 33.1 g/dL (32-36); Mean Corpuscular Hgb 29.2 pg (27.0-32.0); Mean Corpuscular Volume 88.3 fL (81-99); Mean Platelet Vol. 10.1 fl (6.2-12.0); Monocyte# 0.36 X10^3/uL; Monocyte% 7.2 % (0-10); NRBC Flagged by Analyzer 0 % (0-5); Neutrophil % 65.8 % (47-70); Platelet Count 278 K/mm3 (150-450); RBC Distribution Width SD 45.1 fl (35.1-43.9); Red Blood Count 4.01 M/mm3 (4.2-5.4)
[2022-04-02 10:26] LABS: ALB/GLOB Ratio 0.9 RATIO (0.9-2.4); AST(SGOT) 13 U/L (15-37); Alanine Aminotransfer ALT/SGPT 17 U/L (13-56); Albumin, Serum 3.3 g/dL (3.2-5.0); Alkaline Phosphatase 54 U/L (45-117); Anion Gap 6 (5-15); BUN 12 mg/dL (7-18); BUN/Creat Ratio 16.3 RATIO (10-20); Calcium,Total 8.5 mg/dL (8.5-10.1); Chloride 105 mmol/L (98-107); Creatinine, Serum 0.74 mg/dL (0.55-1.02); EST Glomerular Filtration Rate 89 mL/min (>60); Est Glom Filt Rate - Afr Amer 108 mL/min (>60); Globulin 3.8 g/dL (2.2-4.2); Glucose 77 mg/dL (74-106); Potassium 3.8 mmol/L (3.5-5.1); Prealbumin 22.5 mg/dL (20.0-40.0); Protein, Total 7.1 g/dL (6.4-8.2); Sodium Level 141 mmol/L (136-145); Thyroid Stim Hormone (TSH) 1.76 uIU/mL (0.358-3.74)
[2022-04-02 10:41] LABS: BNP,B-Type NATRIURETIC PEPTIDE 37.7 pg/mL (0-100)
== END | disposition home or self-care (01) ==
LOC: MFPLAB 08:49
PROVIDERS: PCP Family Medicine; Referring Provider Family Medicine; Visit Provider Family Medicine
DX: R60.9 Edema, unspecified (principal)
CPT/HCPCS: 36415; 80053; 83880; 84134; 84443; 85025

== ENCOUNTER 2023-11-09 23:50 | Emergency (ER) | payer OTHER, SELFPAY ==
[2023-11-09 23:51] VITALS: BP 211/107; PULSE 79; RESP 18; TEMP 36.3; O2SAT 98; BMI 47.5
--- NOTE | 2023-11-10 00:07 | CT_ITS ---
STUDY: CT ABDOMEN AND PELVIS WITH CONTRAST REASON FOR EXAM: Female, 48 years old. upper abd pain RADIATION DOSAGE (If Supplied By Facility): CTDIvol = ( 20.40 ) mGy, DLP = ( 1319.14 ) mGycm TECHNIQUE: IV 100mL Isovue-300 was administered. Transaxial images were obtained from the dome of the diaphragm to the symphysis pubis in the portal venous phase. Multiplanar coronal and sagittal images were reformatted. Individualized Dose Optimization Techniques Were Used For This CT. COMPARISON: 03/09/2020 FINDINGS: LOWER CHEST: Lung bases are clear. No cardiomegaly or pericardial effusion. LIVER: The liver is normal in size, shape, and attenuation. No focal mass. GALLBLADDER AND BILIARY TREE: Cholelithiasis. No pericholecystic inflammation. No intra- or extrahepatic biliary ductal dilation. PANCREAS: No focal cystic or solid mass. SPLEEN: Normal size without focal cystic or solid mass. ADRENAL GLANDS: No nodules. KIDNEYS AND URETERS: Normal renal size and position. No hydronephrosis or nephrolithiasis. PERITONEUM: No ascites or free air. No other fluid collection. BOWEL: The stomach is unremarkable. Normal caliber small bowel. There is no obstruction. No colonic wall thickening or inflammation. No free air or free fluid. Appendectomy. LYMPH NODES: No enlarged mesenteric or retroperitoneal lymph nodes. VESSELS: Aorta is non-dilated. URINARY BLADDER: Unremarkable. REPRODUCTIVE ORGANS: No pelvic masses. ABDOMINAL WALL: Fat-containing umbilical hernia without inflammation unchanged from prior BONES: No lytic or blastic abnormality. CT/Abdomen/Pelvis W IV Cont ONLY IMPRESSION: * No acute findings to explain the patient''s symptomatology on the basis of CT. * Cholelithiasis. If there is concern for cholecystitis, perform a right upper quadrant ultrasound. Electronically Signed: Isaiah Prado MD at 1:45 EDT ,
--- NOTE | 2023-11-10 00:10 | ED.VIS.GI ---
HPI HPI - GI History of Present Illness Chief Complaint: Abd Pain Informant: patient Abdominal Pain/Flank Pain Onset: Hours (6) Context: Gradual Onset Timing: Continuous Quality: Aching Location: Epigastric (Radiating to both upper quadrant areas but not to shoulder, back, chest) Current Severity: Mild Maximum Severity: Severe Worsened by: Nothing Relieved by: Nothing; Not Relieved By Antacids Nausea/Vomiting/Emesis GI Symptom: Negative for Nausea or Vomiting Diarrhea/Melena/Hematochezia GI Symptom: Negative for Diarrhea, Melena or Hematochezia Associated Symptoms Associated Symptoms: Negative for Dysuria, Frequency or Hematuria Narrative Narrative: 48-year-old female has been having upper abdominal pain tonight. She states it started maybe 4 hours after the last thing that she ate. It has not been colicky. It does not radiate anywhere. She has a history of GERD and takes famotidine nightly for it, but states this feels different. She tried taking Mylanta and simethicone anyway, but they did not seem to help. She states the pain is lessened right now, but not because of the medications that she took because she took them earlier. [facility] Medical History (Updated 11/10/23 @ 01:[address] Juan Jose Nickerson MD) Acid reflux Arthritis Hemorrhoids History of back problems Pelvic pain Home Medications acetaminophen 325 mg capsule (Tylenol) 500 mg PO QAM pain 01/02/20 [History Last Taken Unknown] famotidine 20 mg tablet 20 mg PO QHS gerd 01/02/20 [History Last Taken Unknown] ibuprofen 200 mg capsule 200 mg PO QAM 01/02/20 [History Last Taken Unknown] estradiol 1 mg tablet 1 mg PO DAILY #100 tabs 01/12/20 [Rx Last Taken Unknown] Allergy/AdvReac Type Severity Reaction Status Date / Time celecoxib [From Celebrex] Allergy Mild Itching Verified 11/09/23 23:52 Family History Grandmother Cancer skin cancer Surgical History (Updated 11/10/23 @ 00:[address] Juan Jose Nickerson MD) History of bilateral oophorectomy History of History of hysterectomy History of tonsillectomy Social History household members: family current occupational status: employed Smoking Status: Former smoker alcohol intake: current substance use type: does not use ROS ROS ED Constitutional Constitutional ED: Denies chills or fever(s) Eyes Eyes: Denies change in vision or diplopia ENT ENT ED: Denies rhinorrhea or sore throat Cardiovascular Cardiovascular: Denies chest pain, palpitations or radiating jaw, neck or arm pain Respiratory/Chest Respiratory/Chest: Denies cough or dyspnea Gastrointestinal Gastrointestinal: Reports abdominal pain; Denies diarrhea, nausea or vomiting Genitourinary Genitourinary ED: Denies dysuria or hematuria Musculoskeletal Musculoskeletal: Denies back pain or neck pain Integumentary Denies abscess or rash Neurologic Neurologic: Denies headache(s), paresthesias or weakness Psychiatric Psychiatric: Denies anxiety or suicidal thoughts EXAM Physical Exam Const Vital Signs: 11/09/23 23:51 Temperature 97.4 F L Temperature Source Temporal Pulse Rate 79 Respiratory Rate 18 Blood Pressure 211/107 H Blood Pressure Mean 141 Pulse Ox 98 Oxygen Delivery Method Room Air Positive well nourished, well developed and obese General Appearance ED: well developed and NAD Nutritional Appearance: obese HEENT Reports moist mucous membranes normocephalic and atraumatic Eyes PERRL and EOMs intact bilaterally Neck full ROM and supple Resp normal respiratory effort and clear to auscultation bilaterally Cardio regular rate, regular rhythm and no murmurs GI non-distended GI Narrative: Tender right upper quadrant and epigastrium, otherwise nontender. No guarding or rebound tenderness. Negative Page. Auscultation: hyperactive bowel sounds Palpation: soft Back/Spine no CVA tenderness General Back: other FROM Extremity normal to inspection General Extremety ED: Negative for edema, pulses abnormal or tenderness General Extremity: Negative for edema or pulses abnormal Neuro oriented x3, CN's II-XII intact bilaterally and no sensory deficits noted Sensorium / Orientation: awake and alert Motor Exam: strength 5/5 throughout Skin no rashes or lesions noted and no wounds MDM MDM MDM Narrative Medical decision making narrative: Differential includes multiple functional GI disorders including gastritis, as well as biliary disease/etiologies. The location of her discomfort is appropriate for biliary etiologies, but the rest of the history really does not necessarily fit for this. 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 I reviewed the images and the report which I agree with, it shows gallstones and no radiographically visible signs of acute cholecystitis. There is no other acute abnormality or inflammatory problem on the CT. Her labs are very normal including her white blood count, liver enzymes, lipase. Urinalysis is obtained and is unremarkable. I did a bedside ultrasound with the ED screening machine, and I confirmed that she appears to have multiple layering bilirubin stones within the gallbladder lumen. She has a negative sonographic Page's on my examination. The ultrasound was performed after the patient received medications for discomfort, she was empirically treated with Toradol given the possibility of biliary etiology and dicyclomine given the possibility of GI etiology. After all of this she still felt a little achy although she was nontender over her gallbladder, suggesting that the pain may not be biliary. At this time I see no evidence of acute cholecystitis, so comfortable with her following up on a low-fat diet, she is ordered an outpatient ultrasound and referred to surgery to follow-up after the ultrasound is obtained. She takes nightly famotidine, and I also encouraged her to either double that or switch over to an [id number] PPI in the meantime. Lab Data Attestation: I reviewed the patient's lab results. Labs: Laboratory Results - last 24 hr 11/10/23 11/10/23 00:12 00:48 WBC 6.5 RBC 4.33 Hgb 12.1 Hct 36.9 L MCV 85.2 MCH 27.9 MCHC 32.8 RDW Std Deviation 43.3 RDW Coeff of Devonte 13.8 Plt Count 295 MPV 9.8 Immature Gran % (Auto) 0.800 Neut % (Auto) 58.9 Lymph % (Auto) 28.8 [place] % (Auto) 7.8 Eos % (Auto) 2.8 Baso % (Auto) 0.9 Absolute Neuts (auto) 3.9 Absolute Lymphs (auto) 1.88 Nucleated RBC % 0 Sodium 138 Potassium 3.9 Chloride 104 Carbon Dioxide 28.0 Anion Gap 6 BUN 17 Creatinine 0.85 Estim Creat Clear Calc 112.41 Est GFR (MDRD) Af Amer 91 Est GFR (MDRD) Non-Af 75 BUN/Creatinine Ratio 20.0 Glucose 121 H Calcium 9.0 Total Bilirubin 0.30 AST 18 ALT 23 Alkaline Phosphatase 54 Total Protein 7.0 Albumin 3.3 Globulin 3.7 Albumin/Globulin Ratio 0.9 Lipase 44 Urine Color Yellow Urine Clarity Clear Urine pH 7.0 Ur Specific [place] 1.010 Urine Protein Negative Urine Glucose (UA) Normal Urine Ketones Negative Urine Occult Blood 25 H Urine Nitrite Negative Urine Bilirubin Negative Urine Urobilinogen Normal Ur Leukocyte Esterase Negative Urine RBC 0 SEEN Urine WBC 0 SEEN Ur Squamous Epith Cells 0-5 SEEN Urine Bacteria 0 SEEN Urine Mucus 0 SEEN Radiography Diagnostic Testing: Clinical Impression(s) from Imaging Studies Abdomen/Pelvis CT 11/10/23 00:07 IMPRESSION: * No acute findings to explain the patient''s symptomatology on the basis of CT. * Cholelithiasis. If there is concern for cholecystitis, perform a right upper quadrant ultrasound. Electronically Signed: Isaiah Prado MD at 1:45 EDT , Discharge Plan Triage Chief Complaint: Abd Pain ED Provider: Juan Jose Nickerson Dx/Rx/DC Orders Clinical Impression: Acute upper abdominal pain, Cholelithiasis Instructions: Gallstones Dc Prescriptions: No Action famotidine 20 mg tablet 20 mg PO QHS ibuprofen 200 mg capsule 200 mg PO QAM Patient Comments: ask about stopping acetaminophen [Tylenol] 325 mg capsule 500 mg PO QAM estradiol 1 MG tablet 1 mg PO DAILY Qty: 100 1RF Other Ambulatory Orders: Gallbladder (Routine) Timeframe: 2 Days Facility: [facility] Location: [facility] Ordered By: Dr. Juan Jose Nickerson Primary Care Provider: DURGA FRANCO Referrals: Jonathan Wong MD [Med Staff - Active Staff] - DURGA FRANCO CRNP [Primary Care Provider] - Disposition Disposition: Home, Self Care
[2023-11-10] MEDS: Ketorolac 15 MG/ML Vial IV (00:20)
[2023-11-10] MEDS: Dicyclomine 10 MG Capsule 20 MG PO (00:20)
[2023-11-10] MEDS: 0.9% Normal Saline (1000mL) 1,000 ML 125 ML IV (00:20)
[2023-11-10 00:42] LABS: Absolute Lymphocyte Count 1.88 X10^3/uL (0.83-4.51); Absolute Neutrophil Count 3.9 X10^3/uL (2.0-7.7); Basophil# 0.06 X10^3/uL; Basophil% 0.9 % (0-1); Eosinophil# 0.18 X10^3/uL; Eosinophils% 2.8 % (0-5); Hematocrit 36.9 % (37-47); Hemoglobin 12.1 g/dL (12.0-15.0); Lymphocyte # 1.88 X10^3/ul (0.83-4.51); Lymphocyte % 28.8 % (19-41); Mean Corp Hgb Conc 32.8 g/dL (32-36); Mean Corpuscular Hgb 27.9 pg (27.0-32.0); Mean Corpuscular Volume 85.2 fL (81-99); Mean Platelet Vol. 9.8 fl (6.2-12.0); Monocyte# 0.51 X10^3/uL; Monocyte% 7.8 % (0-10); NRBC Flagged by Analyzer 0 % (0-5); Neutrophil # 3.85 X10^3/uL (2.7-7.7); Neutrophil % 58.9 % (47-70); Platelet Count 295 K/mm3 (150-450); RBC Distribution Width CV 13.8 % (11.6-14.6); RBC Distribution Width SD 43.3 fl (35.1-43.9); Red Blood Count 4.33 M/mm3 (4.2-5.4); White Blood Count 6.5 K/mm3 (4.4-11.0)
[2023-11-10 00:43] LABS: ALB/GLOB Ratio 0.9 RATIO (0.9-2.4); AST(SGOT) 18 U/L (15-37); Alanine Aminotransfer ALT/SGPT 23 U/L (13-56); Albumin, Serum 3.3 g/dL (3.2-5.0); Alkaline Phosphatase 54 U/L (45-117); Anion Gap 6 (5-15); BUN 17 mg/dL (7-18); Chloride 104 mmol/L (98-107); Creatinine, Serum 0.85 mg/dL (0.55-1.02); EST Glomerular Filtration Rate 75 mL/min (>60); Est Glom Filt Rate - Afr Amer 91 mL/min (>60); Estimated Creatinine Clearance 112.41 ml/min; Globulin 3.7 g/dL (2.2-4.2); Glucose 121 mg/dL (74-106); Lipase 44 U/L (13-75); Potassium 3.9 mmol/L (3.5-5.1); Sodium Level 138 mmol/L (136-145)
[2023-11-10 00:49] LABS: Bacteria 0 SEEN /hpf (None Seen); Mucous, Urine 0 SEEN /hpf (<or=2+); Red Blood Cells-Urine 0 SEEN /hpf (0-5); White Blood Cells 0 SEEN /hpf (0-5)
[2023-11-10 00:50] LABS: Color, Urine Yellow (Yellow); Glucose, Dipstick Normal (Normal); Ketone-Dipstick Negative (Negative); Leukocyte Esterase-Dipstick Negative /ul (Negative); Nitrite-Dipstick Negative (Negative); Occult Blood-Urine 25 /ul (Negative); Protein-Dipstick Negative (Negative); Urine Bilirubin Dipstick Negative (Negative); Urine Urobilinogen Normal (Normal)
[2023-11-10 00:51] LABS: Urine Clarity Clear (Clear)
[2023-11-10 00:57] LABS: Squamous Epithelial Cells - UA 0-5 SEEN /hpf (5-10)
[2023-11-10 02:05] VITALS: BP 159/77; PULSE 69; RESP 16; TEMP 36.7; O2SAT 97
== END 2023-11-10 02:05 | disposition home or self-care (01) ==
PROVIDERS: Emergency Provider Emergency Medicine; PCP Nurse Practitioner Adult Health; Visit Provider Emergency Medicine
DX: K80.20 Calculus of gallbladder without cholecystitis without obstruction (principal); R10.10 Upper abdominal pain, unspecified; E66.9 Obesity, unspecified; Z87.891 Personal history of nicotine dependence
CPT/HCPCS: 74177; 80053; 81001; 83690; 85025; 96374; 99282; J7030; Q9967; A4216

== ENCOUNTER 2023-11-16 12:59 | Day surgery (SDC) | payer OTHER, SELFPAY ==
[2023-11-16 13:20] VITALS: BP 156/96; PULSE 69; RESP 16; TEMP 36.3; O2SAT 100; BMI 46.7
[2023-11-16] MEDS: Lactated Ringers 1,000 ML 15 ML IV (13:24)
--- NOTE | 2023-11-16 14:53 | PCM.HP.BLA ---
History and Physical Date of Admission: 11/16/23 48-year-old female has been having upper abdominal pain tonight. She states it started maybe 4 hours after the last thing that she ate. It has not been colicky. It does not radiate anywhere. She has a history of GERD and takes famotidine nightly for it, but states this feels different. She tried taking Mylanta and simethicone anyway, but they did not seem to help. She states the pain is lessened right now, but not because of the medications that she took because she took them earlier. Workup in the ED had shown that she was afebrile and normotensive. Her lab work showed normal CBC and CMP. Also amylase lipase was normal. She had a CT scan abdomen pelvis that showed normal size gallbladder without any filling defects. There were no wall thickening throughout the GI tract. There was also no signs of pancreatitis. She comes in today for diagnostic upper endoscopy. [facility] Medical History (Updated 11/10/23 @ 01:[address] Juan Jose Nickerson MD) Acid reflux Arthritis Hemorrhoids History of back problems Pelvic pain Home Medications acetaminophen 325 mg capsule (Tylenol) 500 mg PO QAM pain 01/02/20 [History Last Taken Unknown] famotidine 20 mg tablet 20 mg PO QHS gerd 01/02/20 [History Last Taken Unknown] ibuprofen 200 mg capsule 200 mg PO QAM 01/02/20 [History Last Taken Unknown] estradiol 1 mg tablet 1 mg PO DAILY #100 tabs 01/12/20 [Rx Last Taken Unknown] Allergy/AdvReac Type Severity Reaction Status Date / Time celecoxib [From Celebrex] Allergy Mild Itching Verified 11/09/23 23:52 Family History Grandmother Cancer skin cancer Surgical History (Updated 11/10/23 @ 00:[address] Juan Jose Nickerson MD) History of bilateral oophorectomy History of History of hysterectomy History of tonsillectomy Social History household members: family current occupational status: employed Smoking Status: Former smoker alcohol intake: current substance use type: does not use ROS ROS ED Constitutional Constitutional ED: Denies chills or fever(s) Eyes Eyes: Denies change in vision or diplopia ENT ENT ED: Denies rhinorrhea or sore throat Cardiovascular Cardiovascular: Denies chest pain, palpitations or radiating jaw, neck or arm pain Respiratory/Chest Respiratory/Chest: Denies cough or dyspnea Gastrointestinal Gastrointestinal: Reports abdominal pain; Denies diarrhea, nausea or vomiting Genitourinary Genitourinary ED: Denies dysuria or hematuria Musculoskeletal Musculoskeletal: Denies back pain or neck pain Integumentary Denies abscess or rash Neurologic Neurologic: Denies headache(s), paresthesias or weakness Psychiatric Psychiatric: Denies anxiety or suicidal thoughts EXAM Physical Exam Const Vital Signs: 11/08/2422:51 Temperature 97.4 F L Temperature Source Temporal Pulse Rate 79 Respiratory Rate 18 Blood Pressure 211/107 H Blood Pressure Mean 141 Pulse Ox 98 Oxygen Delivery Method Room Air Positive well nourished, well developed and obese General Appearance ED: well developed and NAD Nutritional Appearance: obese HEENT Reports moist mucous membranes normocephalic and atraumatic Eyes PERRL and EOMs intact bilaterally Neck full ROM and supple Resp normal respiratory effort and clear to auscultation bilaterally Cardio regular rate, regular rhythm and no murmurs GI non-distended GI Narrative: Tender right upper quadrant and epigastrium, otherwise nontender. No guarding or rebound tenderness. Negative Page. Auscultation: hyperactive bowel sounds Palpation: soft Back/Spine no CVA tenderness General Back: other FROM Extremity normal to inspection General Extremety ED: Negative for edema, pulses abnormal or tenderness General Extremity: Negative for edema or pulses abnormal Neuro oriented x3, CN's II-XII intact bilaterally and no sensory deficits noted Sensorium / Orientation: awake and alert Motor Exam: strength 5/5 throughout Skin no rashes or lesions noted and no wounds MDM MDM MDM Narrative Medical decision making narrative: Differential includes multiple functional GI disorders including gastritis, as well as biliary disease/etiologies. The location of her discomfort is appropriate for biliary etiologies, but the rest of the history really does not necessarily fit for this. 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 I reviewed the images and the report which I agree with, it shows gallstones and no radiographically visible signs of acute cholecystitis. There is no other acute abnormality or inflammatory problem on the CT. Her labs are very normal including her white blood count, liver enzymes, lipase. Urinalysis is obtained and is unremarkable. I did a bedside ultrasound with the ED screening machine, and I confirmed that she appears to have multiple layering bilirubin stones within the gallbladder lumen. She has a negative sonographic Page's on my examination. The ultrasound was performed after the patient received medications for discomfort, she was empirically treated with Toradol given the possibility of biliary etiology and dicyclomine given the possibility of GI etiology. After all of this she still felt a little achy although she was nontender over her gallbladder, suggesting that the pain may not be biliary. At this time I see no evidence of acute cholecystitis, so comfortable with her following up on a low-fat diet, she is ordered an outpatient ultrasound and referred to surgery to follow-up after the ultrasound is obtained. She takes nightly famotidine, and I also encouraged her to either double that or switch over to an [id number] PPI in the meantime. Lab Data Attestation: I reviewed the patient's lab results. Labs: Laboratory Results - last 24 hr 11/10/23 11/10/23 00:12 00:48 WBC 6.5 RBC 4.33 Hgb 12.1 Hct 36.9 L MCV 85.2 MCH 27.9 MCHC 32.8 RDW Std Deviation 43.3 RDW Coeff of [place] 13.8 Plt Count 295 MPV 9.8 Immature Gran % (Auto) 0.800 Neut % (Auto) 58.9 Lymph % (Auto) 28.8 [place] % (Auto) 7.8 Eos % (Auto) 2.8 Baso % (Auto) 0.9 Absolute Neuts (auto) 3.9 Absolute Lymphs (auto) 1.88 Nucleated RBC % 0 Sodium 138 Potassium 3.9 Chloride 104 Carbon Dioxide 28.0 Anion Gap 6 BUN 17 Creatinine 0.85 Estim Creat Clear Calc 112.41 Est GFR (MDRD) Af Amer 91 Est GFR (MDRD) Non-Af 75 BUN/Creatinine Ratio 20.0 Glucose 121 H Calcium 9.0 Total Bilirubin 0.30 AST 18 ALT 23 Alkaline Phosphatase 54 Total Protein 7.0 Albumin 3.3 Globulin 3.7 Albumin/Globulin Ratio 0.9 Lipase 44 Urine Color Yellow Urine Clarity Clear Urine pH 7.0 Ur Specific [place] 1.010 Urine Protein Negative Urine Glucose (UA) Normal Urine Ketones Negative Urine Occult Blood 25 H Urine Nitrite Negative Urine Bilirubin Negative Urine Urobilinogen Normal Ur Leukocyte Esterase Negative Urine RBC 0 SEEN Urine WBC 0 SEEN Ur Squamous Epith Cells 0-5 SEEN Urine Bacteria 0 SEEN Urine Mucus 0 SEEN Radiography Diagnostic Testing: Clinical Impression(s) from Imaging Studies Abdomen/Pelvis CT 11/10/23 00:07 IMPRESSION: * No acute findings to explain the patient''s symptomatology on the basis of CT. * Cholelithiasis. If there is concern for cholecystitis, perform a right upper quadrant ultrasound. Assessment & Plan Assessment/Plan (1) Acute upper abdominal pain: PLAN: Differential diagnosis does include peptic ulcer disease, atypical GERD, H. pylori associated gastritis, celiac disease. She will undergo an upper endoscopy. She was explained alternatives, risk, benefits include not withstanding bleeding, infection, sepsis, perforation, need for emergent urgent . She will have an ASA of 3.
[2023-11-16 15:15] VITALS: BP 151/81; BP 156/96; PULSE 60; RESP 16; TEMP 36.4; O2SAT 97
[2023-11-16 15:20] VITALS: BP 128/76; BP 156/96; PULSE 64; RESP 18; O2SAT 96
[2023-11-16 15:25] VITALS: BP 136/83; BP 156/96; PULSE 59; RESP 18; TEMP 36.3; O2SAT 97
--- NOTE | 2023-11-16 15:40 | OP.EGD_ITS ---
Patient Name: Holly Rowe Procedure Date: 11/16/2023 3:33 PM Date of : 1975 Age: 48 Procedure: Upper GI endoscopy Indications: Epigastric abdominal pain Providers: Rhett Burrell DO Medicines: Monitored Anesthesia Care Patient Profile: This is a 48 year old female. Refer to note in patient chart for documentation of history and physical. Patient has symptoms of acute epigastric abdominal pain. Complications: No immediate complications. Procedure: Pre-Anesthesia Assessment: - Prior to the procedure, a History and Physical was performed, and patient medications and allergies were reviewed. The patient is competent. The risks and benefits of the procedure and the sedation options and risks were discussed with the patient. All questions were answered and informed consent was obtained. Patient identification and proposed procedure were verified by the physician in the pre-procedure area. Mental Status Examination: alert and oriented. Airway Examination: normal oropharyngeal airway and neck mobility. Respiratory Examination: clear to auscultation. CV Examination: normal. Prophylactic Antibiotics: The patient does not require prophylactic antibiotics. Prior Anticoagulants: The patient has taken no anticoagulant or antiplatelet agents. ASA Grade Assessment: II - A patient with mild systemic disease. After reviewing the risks and benefits, the patient was deemed in satisfactory condition to undergo the procedure. The anesthesia plan was to use monitored anesthesia care (MAC). Immediately prior to administration of medications, the patient was re-assessed for adequacy to receive sedatives. The heart rate, respiratory rate, oxygen saturations, blood pressure, adequacy of pulmonary ventilation, and response to care were monitored throughout the procedure. The physical status of the patient was re-assessed after the procedure. After obtaining informed consent, the endoscope was passed under direct vision. Throughout the procedure, the patient's blood pressure, pulse, and oxygen saturations were monitored continuously. The Endoscope was introduced through the mouth, and advanced to the second part of duodenum. The upper GI endoscopy was accomplished without difficulty. The patient tolerated the procedure well. Scope In: 3:07:26 PM Scope Out: 3:10:34 PM Total Procedure Duration Time 0 hours 3 minutes 8 seconds Findings: The examined esophagus was normal. A small hiatal hernia was present. No other significant abnormalities were identified in a careful examination of the stomach. Localized moderate inflammation characterized by erosions, erythema and granularity was found in the duodenal bulb. Biopsies were taken with a cold forceps for histology. Verification of patient identification for the specimen was done. Estimated blood loss was minimal. Impression: - Normal esophagus. - Small hiatal hernia. - Duodenitis. Biopsied. Recommendation: - Discharge patient to home. - Resume previous diet. - Use Protonix (pantoprazole) 20 mg PO BID. - Continue present medications. Procedure Code(s): --- Professional --- 62926, Esophagogastroduodenoscopy, flexible, transoral; with biopsy, single or multiple CPT copyright 2021 [employer]. All rights reserved. The codes documented in this report are preliminary and upon waste specialist review may be revised to meet current compliance requirements. Rhett Burrell DO 11/16/2023 3:40:04 PM This report has been signed electronically. Number of Addenda: 0 Note Initiated On: 11/16/2023 3:33 PM
--- NOTE | 2023-11-16 15:40 | OP.CCLET_ITS ---
11/16/2023 Lynne Shaw Re : Upper GI endoscopy procedure for Holly Lopez Makayla This procedure was performed on Thursday, November 16, 2023. My impressions and recommendations are as follows: Impressions : - Normal esophagus. - Small hiatal hernia. - Duodenitis. Biopsied. Recommendations : - Discharge patient to home. - Resume previous diet. - Use Protonix (pantoprazole) 20 mg PO BID. - Continue present medications. My findings are described in the full procedure note, which is enclosed. If I can be of further assistance, please feel free to contact me at . Sincerely, Rhett Burrell, 11/16/2023 3:40:04 PM This report has been signed electronically.
[2023-11-16 16:01] VITALS: BP 156/96
--- NOTE | 2023-11-17 | EGD_PTH ---
PATIENT: JOHANNA CAGE LOC: EN U#:[id number] AGE/SX: 48/F ROOM: RE11/16/[address]: Dr. Rhett Burrell DO : 1975 BED: DIS: 11/16/2023 SPEC #: [id number] RECD: 11/17/23 12:09 STATUS: BEENA BRYAN #: [id number] SCOTT: 11/17/23 00:[address]: Rhett Burrell DEPT: SURGICAL PATHOLOGY RECD BY: Shay Foley ENTERED: 11/17/23 12:09 SP TYPE: EGD BIOPSY OT DR: SUHAIL SCHWARTZ Tissues: Duodenum, NOS Procedures: Surgery Specimen Level IV HEADER OPERATION: EGD with biopsy PRE-OP DIAGNOSIS: Acute upper abdominal pain TISSUE SUBMITTED: Duodenum biopsy MICROSCOPIC DIAGNOSIS Duodenum, biopsy: No pathologic change. AM/mr 11/18/23 MICROSCOPIC DESCRIPTION Slides are reviewed. GROSS DESCRIPTION Received in fixative is one container labeled with the patient's name and designated Duodenum biopsy. The specimen consists of two irregular fragments of light george soft tissue that in aggregate measure 0.6 x 0.6 x 0.1 cm. The specimen is totally submitted in one cassette. YAEL/ 11/17/23 TC:3 CPT:68074
== END 2023-11-16 16:06 | disposition home or self-care (01) ==
LOC: EN 12:59 → AC 13:01
PROVIDERS: PCP Nurse Practitioner Adult Health; Referring Provider Nurse Practitioner Adult Health; Visit Provider Internal Medicine Gastroenterology
PROC: 0DJ08ZZ Inspection of Upper Intestinal Tract, Via Natural or Artificial Opening Endoscopic (ICD-10-PCS; CPT 43235; principal; 2023-11-16 13:55)
DX: K44.9 Diaphragmatic hernia without obstruction or gangrene (principal); K21.9 Gastro-esophageal reflux disease without esophagitis; E66.9 Obesity, unspecified; Z87.891 Personal history of nicotine dependence
CPT/HCPCS: 43239; 88305; J7120

== ENCOUNTER → 2023-11-29 | Outpatient (CLI) | payer OTHER, SELFPAY ==
[2023-11-29 08:46] LABS: Erythrocyte Sedimentation Rate 8 mm/hr (0-30)
[2023-11-29 08:59] LABS: Absolute Lymphocyte Count 1.62 X10^3/uL (0.83-4.51); Absolute Neutrophil Count 3.2 X10^3/uL (2.0-7.7); Basophil# 0.05 X10^3/uL; Basophil% 0.9 % (0-1); Eosinophil# 0.19 X10^3/uL; Eosinophils% 3.5 % (0-5); Hematocrit 40.6 % (37-47); Lymphocyte # 1.62 X10^3/ul (0.83-4.51); Lymphocyte % 30.1 % (19-41); Mean Corpuscular Hgb 27.7 pg (27.0-32.0); Mean Corpuscular Volume 86.4 fL (81-99); Mean Platelet Vol. 10.4 fl (6.2-12.0); Monocyte# 0.29 X10^3/uL; Monocyte% 5.4 % (0-10); NRBC Flagged by Analyzer 0 % (0-5); Neutrophil # 3.21 X10^3/uL (2.7-7.7); Neutrophil % 59.7 % (47-70); Platelet Count 330 K/mm3 (150-450); RBC Distribution Width CV 13.8 % (11.6-14.6); RBC Distribution Width SD 43.9 fl (35.1-43.9); White Blood Count 5.4 K/mm3 (4.4-11.0)
[2023-11-29 09:05] LABS: ALB/GLOB Ratio 0.9 RATIO (0.9-2.4); AST(SGOT) 18 U/L (15-37); Alanine Aminotransfer ALT/SGPT 19 U/L (13-56); Albumin, Serum 3.7 g/dL (3.2-5.0); Alkaline Phosphatase 63 U/L (45-117); Anion Gap 4 (5-15); BUN 9 mg/dL (7-18); BUN/Creat Ratio 11.9 RATIO (10-20); Chloride 105 mmol/L (98-107); Creatinine, Serum 0.76 mg/dL (0.55-1.02); EST Glomerular Filtration Rate 86 mL/min (>60); Est Glom Filt Rate - Afr Amer 104 mL/min (>60); Glucose 102 mg/dL (74-106); LDH 157 U/L (84-246); Potassium 3.7 mmol/L (3.5-5.1); Protein, Total 7.7 g/dL (6.4-8.2); Sodium Level 138 mmol/L (136-145)
[2023-12-02 16:10] LABS: Albumin 3.7 g/dL (2.9-4.4); Alpha-1-Globulins 0.3 g/dL (0.0-0.4); Alpha-2-Globulins 0.7 g/dL (0.4-1.0); Cytoplasmic Ab (C-ANCA) <1:20 titer (Neg:<1:20); Endomysial Antibody IgA Negative (Negative); Gamma Globulin 1.1 g/dL (0.4-1.8); Immunoglobulin A 398 mg/dL (87-352); Immunoglobulin E 21 IU/mL (6-495); Immunoglobulin G 1117 mg/dL (586-1602); Immunoglobulin M 50 mg/dL (26-217); PROEL- TOTAL PROTEIN 7.1 g/dL (6.0-8.5); Perinuclear Ab (P-ANCA) <1:20 titer (Neg:<1:20); t-Transglutaminase IgA <2 U/mL (0-3)
[2023-12-02 19:07] LABS: Anti-Centromere B Ab <0.2 AI (0.0-0.9); Anti-Chromatin <0.2 AI (0.0-0.9); Anti-Jo <0.2 AI (0.0-0.9); Anti-Scleroderma-70 AB <0.2 AI (0.0-0.9); Anti-dsDNA Ab <1 IU/mL (0-9); Beef <0.10 kU/L (Class 0); Chocolate <0.10 kU/L (Class 0); Codfish <0.10 kU/L (Class 0); Corn <0.10 kU/L (Class 0); Egg, Whole <0.10 kU/L (Class 0); Milk (Cow) <0.10 kU/L (Class 0); Mussels <0.10 kU/L (Class 0); Peanut <0.10 kU/L (Class 0); Pork <0.10 kU/L (Class 0); RNP Ab <0.2 AI (0.0-0.9); SJOGREN'S Anti-SS-A test < 0.2 AI (0.0-0.9); SJOGREN'S Anti-SS-B test < 0.2 AI (0.0-0.9); Salmon <0.10 kU/L (Class 0); Shrimp <0.10 kU/L (Class 0); Smith Ab <0.2 AI (0.0-0.9); Soybean <0.10 kU/L (Class 0); Tuna <0.10 kU/L (Class 0); Wheat <0.10 kU/L (Class 0)
== END | disposition home or self-care (01) ==
LOC: LAB 07:16
PROVIDERS: PCP Nurse Practitioner Adult Health; Referring Provider Internal Medicine Gastroenterology; Visit Provider Internal Medicine Gastroenterology
DX: R10.31 Right lower quadrant pain (principal); R19.7 Diarrhea, unspecified; T78.40XA Allergy, unspecified, initial encounter
CPT/HCPCS: 36415; 80053; 82784; 82785; 83516; 83615; 84165; 85025; 85652; 86003; 86005; 86140; 86225; 86235; 86255; 86256; 86334

== ENCOUNTER → 2023-12-03 | Outpatient (CLI) | payer OTHER, SELFPAY ==
[2023-12-08 15:08] LABS: Calprotectin, Stool 44 ug/g (0-120); Fats, Neutral Normal (.); Fats, Total Normal (.)
== END | disposition home or self-care (01) ==
PROVIDERS: Visit Provider Internal Medicine Gastroenterology
DX: K58.9 Irritable bowel syndrome, unspecified (principal); R10.31 Right lower quadrant pain; R19.7 Diarrhea, unspecified
CPT/HCPCS: 82653; 82705; 83630; 83993; 87177; 87209; 87329; 87506

== ENCOUNTER → 2024-05-08 | Outpatient (CLI) | payer OTHER, SELFPAY ==
--- NOTE | 2024-05-08 15:27 | BI_ITS ---
MAMMOGRAPHY - BILATERAL SCREENING REASON FOR EXAM: Female, 49 years old. Routine annual screening examination. PERTINENT HISTORY: Non-contributory. TECHNIQUE: Digital bilateral breast porter (3D mammographic acquisition) in the CC and MLO projections. 2-D mediolateral oblique (MLO) and craniocaudad (CC) views of both breasts were obtained. CAD: Full Field Digital Mammography with Computer Added Detection was performed. COMPARISON: Comparison is made with prior outside examination dated December 17, 2022. FINDINGS: Breast Composition: The breasts are almost entirely fatty. There are no dominant masses or suspicious calcifications. No other significant abnormalities are identified. There has been no significant change since the prior study. BI/SCRN MAMM (CAD)W/PORTER BILAT IMPRESSION: Stable bilateral screening mammogram. Yearly follow-up mammogram recommended. (A) ASSESSMENT CATEGORY: BIRADS Category 1: Negative. A letter regarding these results will be sent to the patient by the facility within 30 days. Approximately 10% of breast cancers are not detected by mammography. A normal mammogram should not delay biopsy of a clinically suspicious abnormality. [id number] Electronically Signed: Chan Garcia MD at 8:47 EDT ,
== END | disposition home or self-care (01) ==
LOC: OPBI 15:26
PROVIDERS: PCP Family Medicine; Referring Provider Family Medicine; Visit Provider Family Medicine
DX: Z12.31 Encounter for screening mammogram for malignant neoplasm of breast (principal)
CPT/HCPCS: 77063; 77067

== ENCOUNTER 2024-06-09 00:27 | Emergency (ER) | payer OTHER, SELFPAY ==
[2024-06-09 00:28] VITALS: BP 170/90; PULSE 97; RESP 15; TEMP 36.9; O2SAT 95; BMI 45.3
--- NOTE | 2024-06-09 01:07 | EDS_ITS ---
HPI History of Present Illness Chief Complaint: Upper Extremity Injury Narrative Narrative: Chief complaint and HPI: Right wrist pain. 49-year-old female presents for evaluation of right wrist pain. Patient states a couple days ago she slept with her arm over her head and her right wrist bent. She states when she woke up she had right wrist pain. She states that she has been taking Tylenol and Advil with little relief. She has been wearing a wrist splint without improvement. Patient denies any numbness or tingling in the fingers or in the arm. Pain is worse with movement of the wrist. She denies any injury or trauma. Denies any history of carpal tunnel. Denies any fever, chills. Review of systems: See HPI Medications: As listed on the chart Allergies: As listed on the chart PFSH: Per chart Vital signs: As listed on the chart. Reviewed. Physical exam: Gen: A&O x3, NAD Head: Normocephalic, atraumatic Eyes: No sclera icterus, conjunctiva clear ENT: Moist mucous membranes Neck: Full range of motion CV: Regular rate Resp: Nonlabored respiration Musc: Full ROM of the right upper extremity except limited at the wrist secondary to pain, patient is tender to palpation over the median nerve at the wrist however Tinel's negative. Patient has pain with flexion, supination, pronation of the wrist. Able to move all of her fingers but when she does so states that it hurts her wrist. Good capillary refill. Sensation intact. Radial/ulnar pulses plus 2 out of 4 bilaterally. No snuffbox tenderness. No erythema, warmth. No septic joint. No signs of trauma. No swelling. Full range of motion of the elbow without tenderness. No tenderness to palpation of the hand or fingers. Skin: Warm, dry Neuro: Alert, oriented, grossly intact, sensation intact Psych: Cooperative, appropriate mood and affect [facility] Medical History (Updated 06/09/24 @ 02:[address] Juan Coronado DO) Wears glasses Anxiety Back pain Gastric reflux Former smoker Shortness of breath on exertion Leg cramps History of edema Arthritis Home Medications ?Medication ?Instructions ?Recorded ?Last Taken ?Type estradiol 1 mg tablet 1 mg PO DAILY #100 tabs 01/26/24 Unknown Rx famotidine 20 mg tablet 20 mg PO QHS gerd #90 tabs 01/27/24 Unknown Rx Allergy/AdvReac Type Severity Reaction Status Date / Time celecoxib (From Celebrex) Allergy Mild Itching Verified 06/09/24 00:28 Family History Grandmother Cancer skin cancer Surgical History History of esophagogastroduodenoscopy (EGD) History of bilateral oophorectomy History of hysterectomy History of History of tonsillectomy Social History household members: family current occupational status: employed Smoking Status: Current some day smoker tobacco type: cigarettes alcohol intake: current substance use type: does not use EXAM Physical Exam Const Vital Signs: 06/09/24 00:28 Temperature 98.5 F Temperature Source Oral Pulse Rate 97 Respiratory Rate 15 Blood Pressure 170/90 H Blood Pressure Mean 116 Pulse Ox 95 Oxygen Delivery Method Room Air MDM MDM MDM Narrative Medical decision making narrative: 49-year-old female presents for evaluation of right wrist pain. Patient states a couple days ago she slept with her arm over her head and her right wrist bent and since then has had right wrist pain. She denies any trauma. See physical exam findings. Although fracture is low on the differential given no trauma will obtain x-rays. I do not think any laboratory workup is needed at this time. Patient show today which limits what I can give her. She has no ride home. IM Toradol area ordered. Differential diagnosis includes but is not limited to wrist sprain, wrist fracture, osteoarthritis, carpal tunnel. X-ray of the right wrist was interpreted by me/EM physician as well as radiology. No fracture or dislocation. On reevaluation, patient's pain is improved. She is more comfortable. She has increased range of motion of the wrist now. Patient is stable to discharge home. No clear etiology for patient's pain at this time. She was educated on RICE therapy. Tylenol Motrin as needed for pain. Follow- up with PCP. She confirmed understand the plan. Impression: 1. Acute right wrist pain Discharge Plan Triage Chief Complaint: Upper Extremity Injury ED Provider: Juan Coronado Dx/Rx/DC Orders Clinical Impression: Acute pain of right wrist Instructions: Medicine for Pain, ED RICE Prescriptions: No Action estradiol 1 mg tablet 1 mg PO DAILY Qty: 100 1RF famotidine 20 mg tablet 20 mg PO QHS Qty: 90 1RF Primary Care Provider: Scott Mueller Referrals: Scott Mueller MD [Primary Care Provider] - 3-5 Days Activity Restrictions/Additional Instructions: He received Toradol here in the emergency department. Do not take ibuprofen for 8 hours. Okay for Tylenol. After 8 hours okay for ibuprofen. Print Language: Hungarian Disposition Disposition: Home, Self Care
[2024-06-09] MEDS: Ketorolac 30 MG/ML Syringe IM (01:12)
--- NOTE | 2024-06-09 01:15 | RAD_ITS ---
EXAM: XR RIGHT WRIST COMPLETE, 3 OR MORE VIEWS CLINICAL INDICATION: Pain TECHNIQUE: Frontal, lateral and oblique views of the right wrist. COMPARISON: No relevant prior studies available. FINDINGS: BONES/JOINTS: Unremarkable. No acute fracture. No subluxation. Normal alignment. Preservation of the joint space. No sclerotic or destructive changes observed. SOFT TISSUES: Unremarkable. No soft tissue swelling or gas. No radiopaque foreign body. RAD/Wrist min 3 Views IMPRESSION: Negative right wrist x-rays. Electronically Signed: Kobe Agee MD at 1:56 EST ,
[2024-06-09 02:15] VITALS: BP 142/74; PULSE 69; RESP 16; TEMP 36.6; O2SAT 99
== END 2024-06-09 02:16 | disposition home or self-care (01) ==
PROVIDERS: Emergency Provider Surgery; PCP Family Medicine; Visit Provider Surgery
DX: M25.531 Pain in right wrist (principal); F17.210 Nicotine dependence, cigarettes, uncomplicated
CPT/HCPCS: 73110; 96372; 99282

== ENCOUNTER → 2024-12-12 | Outpatient (CLI) | payer OTHER, SELFPAY ==
[2024-12-12 11:03] LABS: Hematocrit 38.7 % (37-47); Hemoglobin 12.6 g/dL (12.0-15.0); Mean Corp Hgb Conc 32.6 g/dL (32-36); Mean Corpuscular Hgb 27.6 pg (27.0-32.0); Mean Corpuscular Volume 84.7 fL (81-99); Mean Platelet Vol. 10.1 fl (6.2-12.0); Platelet Count 322 K/mm3 (150-450); RBC Distribution Width CV 14.5 % (11.6-14.6); RBC Distribution Width SD 44.7 fl (35.1-43.9); Red Blood Count 4.57 M/mm3 (4.2-5.4); White Blood Count 5.7 K/mm3 (4.4-11.0)
[2024-12-12 12:13] LABS: ALB/GLOB Ratio 1.4 RATIO (0.9-2.4); AST(SGOT) 21 U/L (<=31); Alanine Aminotransfer ALT/SGPT 11 U/L (<=34); Albumin, Serum 4.3 g/dL (3.5-5.0); Alkaline Phosphatase 74 U/L (35-104); Anion Gap 12 (5-15); BUN 12 mg/dL (4-19); BUN/Creat Ratio 14.8 RATIO (10-20); Calcium,Total 9.2 mg/dL (7.6-11.0); Chloride 102 mmol/L (98-108); EST Glomerular Filtration Rate 90 (>60); Globulin 3.1 g/dL (2.2-4.2); Glucose 88 mg/dL (70-99); Lipase 42 U/L (13-75); Potassium 4.4 mmol/L (3.3-5.1); Protein, Total 7.4 g/dL (5.9-8.4); Sodium Level 139 mmol/L (133-145); Total Bilirubin 0.36 mg/dL (0.00-1.30)
== END | disposition home or self-care (01) ==
LOC: LAB 10:07
PROVIDERS: PCP Family Medicine; Referring Provider Student in an Organized Health Care Education/Training Program; Visit Provider Student in an Organized Health Care Education/Training Program
DX: R10.2 Pelvic and perineal pain (principal); R31.9 Hematuria, unspecified
CPT/HCPCS: 36415; 80053; 83690; 85027

== ENCOUNTER → 2025-06-20 | Outpatient (CLI) | payer MEDICAID, SELFPAY ==
--- NOTE | 2025-06-20 10:20 | BI_ITS ---
EXAM: SCRN MAMM (CAD)W/PORTER BILAT DATE: 06/20/2025 CLINICAL HISTORY: F, Age 50 y/o , SCREENING TECHNIQUE: Procedure Code: [id number] Modality: MG Procedure: SCRN MAMM (CAD)W/PORTER BILAT COMPARISON: Prior exam(s) were compared FINDINGS: TISSUE DENSITY: There are scattered areas of fibroglandular density. Bilateral Breast Mammographic Findings: No significant masses, calcifications or other abnormalities are identified. BI/SCRN MAMM (CAD)W/PORTER BILAT IMPRESSION: No mammographic evidence of malignancy in either breast. OVERALL FINAL ASSESSMENT BI-RADS 1: NEGATIVE. RECOMMENDATION: Routine annual follow-up in 1 Year Additional Recommendation none A letter with findings and recommendations will be mailed to the patient. Reading Location: [id number]
== END | disposition home or self-care (01) ==
PROVIDERS: PCP Family Medicine; Referring Provider Obstetrics & Gynecology; Visit Provider Obstetrics & Gynecology
DX: Z12.31 Encounter for screening mammogram for malignant neoplasm of breast (principal)
CPT/HCPCS: 77063; 77067